=== PATIENT | male | born 1945 | race Caucasian/White ===

== ENCOUNTER 2017-11-17 07:10 | Inpatient (IN) | payer OTHER, MEDICAID ==
[~2017-11-17] VITALS: Ht 175.3 cm; Wt 83.0 kg
[2017-11-17] VITALS (52 sets, daily range): BP systolic 68–146; BP diastolic 37–92
[~2017-11-17 07:10] MED LIST: ACET-2619 PO; AMLO5TAB PO; ATOR10TA PO; BISA-213 RC; CLIN300C2 PO; COU1 PO; DOCU-299 PO; FAMO20TA13 PO; GABA300C PO; HYDR100T79 PO; ISOS10TA9 PO; LACT10CA1 PO; LEVO750T2 PO; LISI-420 PO; MAGN400S60 PO; METH750T5 PO; METO50TE2 PO; MULT-1328 PO; NALO25TA PO; OXYC5TAB4 PO; SENN-73 PO; SERT50TA PO; ZOLP10TA1 PO
--- NOTE | 2017-11-17 07:11 | NUR ---
PT BIBA ALS TO BED 10
--- NOTE | 2017-11-17 07:15 | NUR ---
ELLY MEZAP AND ELLY LOPEZP ATTENDING TO ICU-10 FOR POSSIBLE INTUBATION
--- NOTE | 2017-11-17 07:17 | NUR ---
BS-140MG/DL
[2017-11-17] MEDS ORDERED: PIPERACILLIN/TAZOBACTAM 3.375 GM in DEXTROSE 5% 50 ML IV ONE ×2 (07:20→10:20)
[2017-11-17] MEDS ORDERED: NACL 0.9% 500 ML IV ONE ×2 (07:20)
--- NOTE | 2017-11-17 07:23 | NUR ---
DR. CATHI PAUL ATTENDING FOR INTUBATION PROCEDURE SUCCESSFUL CONFIRMATION BY ETCO2 DETECTOR WITH YELLOW WITH AUSCULTATION TO BILATERAL CHEST PLUS ABDOMINAL BY FOREMENTIONED
--- NOTE | 2017-11-17 07:24 | NUR ---
ENDOTRACHEAL SUCTION FOR COPIOUS THICK YELLOW SECRETIONS
[2017-11-17] MEDS ORDERED: PROPOFOL 1000 MG/100 ML PREMIX 100 ML IV ONE (07:25)
--- NOTE | 2017-11-17 07:25 | NUR ---
PATIENT PLACED ON A [employer] R860 VENTILATOR WITH RBVO SETTINGS FROM DR CATHI PAUL AC 12 VT 600 PEEP 5 FIO2 100% SPUTUM SAMPLE COLLECTED
[2017-11-17] MEDS ORDERED: PIPERACILLIN/TAZOBACTAM 3.375 GM VIAL IV ONE (07:27)
--- NOTE | 2017-11-17 07:35 | NUR ---
ENDORACHEAL PLACEMENT CONFIRMED VIA XRAY BY DR CATHI WING INSERT TUBE BY 1 CM 24 CM TO 25 CM ENDOTRACHEAL SUCTION FOR LARGE THICK YELLOW SECRETIONS Addendum: 11/17/17 at 0953 by MCACPA ENDOTRACHEAL TUBE INSERTED 1CM 25CM TO 26CM
[2017-11-17 07:41] LABS: HEMATOCRIT 40.1 % (36-52); HEMOGLOBIN 12.8 g/dL (12.0-18.0); MEAN CORPUSCULAR HEMOGLOBIN 28 pg (27-31); MEAN CORPUSCULAR HGB CONC 32 g/dL (33-37); PLATELET COUNT (AUTO) 432 K/uL (140-450); RED BLOOD CELL COUNT(AUTO) 4.51 MIL/uL (4.20-6.10); RED CELL DISTRIBUTION WIDTH 15.5 % (11.6-13.7); WHITE BLOOD COUNT (AUTO) 15.4 K/uL (4.8-10.8)
[2017-11-17 08:03] LABS: LYMPHOCYTES % (MANUAL) 5 % (20-46); MONOCYTES % (MANUAL) 3 % (5-12)
[2017-11-17 08:10] LABS: ALBUMIN 2.2 g/dL (3.4-5.0); ANION GAP 15.9 (8-16); ASPARTATE AMINOTRANSFERASE 20 U/L (15-37); CARBON DIOXIDE 23.6 mmol/L (21-32); CHLORIDE 105 mmol/L (98-107); CREATININE 2.3 mg/dL (0.7-1.3); GLUCOSE 145 mg/dL (74-106); POTASSIUM 4.5 mmol/L (3.5-5.1); SODIUM SERUM 140 mmol/L (136-145); TOTAL BILIRUBIN 0.6 mg/dL (0.0-1.0); UREA NITROGEN, BLOOD 27 mg/dL (7-18)
--- NOTE | 2017-11-17 08:13 | NUR ---
# 14 FR Urinary catheter inserted utilizing sterile technique. Immediate return of 30 ml CLOUDY BROOKE urine noted. Urine sample collected and sent to lab. Pt tolerated procedure WELL.
--- NOTE | 2017-11-17 08:20 | NUR ---
72 YO M BIBA FOR SOB, RESP DISTRESS, ON BMV @76%, DECREASED LS NITHIN GCS-4, PT TO BED TEN. PT INTUMATED ON ARRIVAL TO ER BY ER . PT FEBRIAL 100.6 TEMPORAL. VENT SETTING AT AC12, TV 600, PEEP 5, FIO2 100%, 26 AT THE TEETH. SPUTUM COLLECTED BY RT AND SENT TO LAB. LS CORSE AT BILAT UPPER LOBES WITH WHEEZING IN INSPIRATION. SHALLOW EVEN BREATHS, BS ACTIVE X4. WILL CONTINUE TO MONITOR. ER MADE AWARE. HOB UP.
[2017-11-17 08:24] LABS: APPEARANCE,URINE TURBID (CLEAR); BILIRUBIN,URINE 1+ (NEGATIVE); BLOOD, URINE 3+ (NEGATIVE); LEUKOCYTE ESTERASE ,URINE 3+ (NEGATIVE); NITRITE, URINE POSITIVE (NEGATIVE); PH,URINE 5.5 (5.0-9.0); UGLUCOSE NEGATIVE (NEGATIVE)
--- NOTE | 2017-11-17 08:24 | NUR ---
HYPOTENSIVE, INFORMED DR PAUL. AWATING ORDERS.
[2017-11-17] MEDS ORDERED: ASPIRIN 81 MG TAB.CHEW PO ONE (08:25)
[2017-11-17] MEDS ORDERED: NACL 0.9% 2,500 ML IV ONE (08:25)
[2017-11-17] MEDS ORDERED: ACETAMINOPHEN 650 MG SUPP RC ONE ×2 (08:30→08:36)
[2017-11-17 08:32] LABS: COLOR,URINE BROWN (YELLOW)
--- NOTE | 2017-11-17 08:49 | NUR ---
XRAY AT BEDSIDE
[2017-11-17 08:53] LABS: RBC,URINE 3-10 (FEW) /HPF (0-5); WBC,URINE 16-25 (MOD) /HPF (0-5)
[2017-11-17] MEDS ORDERED: INTUBATION KIT MC ONE (09:00)
[2017-11-17 09:17] LABS: PROTHROMBIN TIME 149.7 secs (10.8-13.4)
[2017-11-17] MEDS ORDERED: PHYTONADIONE 10 MG in NACL 0.9% 50 ML IV ONE (09:35)
[2017-11-17] MEDS ORDERED: NACL 0.9% 1,000 ML IV SCH (09:56)
[2017-11-17] MEDS ORDERED: ONDANSETRON 4 MG/2 ML VIAL IVP PRN (10:00)
[2017-11-17] MEDS ORDERED: ALBUTEROL SULFATE/IPRATROPIU 3 ML SOL IH PRN (10:05)
[2017-11-17] MEDS ORDERED: LEVOFLOXACIN 750 MG/D5W PREMIX 150 ML IV ONE (10:20)
[2017-11-17] MEDS ORDERED: PHYTONADIONE 10 MG/ML AMP ONE (10:23)
[2017-11-17 10:40] LABS: BARBITURATE, URINE NEG. ng/ml (NEG <=200); BENZODIAZEPINE, URINE NEG. ng/mL (NEG <=200); CANNABINOID, URINE NEG. ng/mL (NEG <=50); COCAINE, URINE NEG. ng/mL (NEG <=300); OPIATE, URINE NEG. ng/mL (NEG <=2000); PHENCYCLIDINE SCREEN,URINE NEG. ng/mL (NEG <=25)
[2017-11-17] MEDS ORDERED: MAGNESIUM HYDROXIDE 2400 MG/30 ML UDC GT PRN (10:45)
[2017-11-17] MEDS ORDERED: BISACODYL 10 MG SUPP RC PRN (10:45)
[2017-11-17 10:48] LABS: CHOL/HDL RATIO 2.5 (1-4.5); FREE T4 (FREE THYROXINE) 1.07 ng/dL (0.76-1.46); MAGNESIUM 1.3 mg/dL (1.8-2.4); PHOSPHORUS 4.3 mg/dL (2.5-4.9); THYROID STIMULATING HORMONE 0.36 uIU/mL (0.34-3.74)
--- NOTE | 2017-11-17 11:03 | NUR ---
Patient will be admitted to care of DR GOLDBERG. Admited to ICU . Will go to room 5. Belongings list completed. Report to AUSTEN DEL CID .
--- NOTE | 2017-11-17 11:10 | NUR ---
RECEIVED PATIENT FROM ER. PATIENT IS AAOX1, UNABLE TO FOLLOW SIMPLE COMMANDS, OPENS EYES SPONTANEOUSLY, NO TRACKING. PATIENT SKIN IS COOL AND CLAMMY AND INTACT WITH REDNESS TO THE BUTTOCKS. HAS PERIPHERAL IV SITE TO RIGHT FA, 18 GAUGE, ASYMPTOMATIC, INTACT. WITH NS BOLUS IN PLACE. ETT TO VENT, SETTING ARE AC 14, FIO2 80, TV 600, PEEP 5. SR ON MONITOR, PATIENT IS HYPOTENSIVE, DR. SOLIZ AWARE. HOB IS 30 DEGREES IN A LOW POSITION. CALL LIGHT WITHIN REACH, WILL CONTINUE TO MONITOR.
--- NOTE | 2017-11-17 11:11 | NUR ---
PT MANUALLY VENTILATED FROM ER TO ICU WITHOUT INCIDENT. PT IS INTUBATED 7.5 @26 TEETH/GUMS. VENT SETTINGS AC 14, VT 600, PEEP 5 AND FIO2 80%. VENT IS PLUGGED INTO A RED OUTLET WITH ALARMS ON AND FUNCTIONING.
[2017-11-17] MEDS: NOREPINEPHRINE 4 MG in DEXTROSE 5% 250 ML IV PRN (12:26)
--- NOTE | 2017-11-17 12:54 | NUR ---
DR. STORY IN TO SEE AND EXAMINE PATIENT, UPDATED ON PATIENT'S CONDITION. WILL FOLLOW UP WITH ANY ORDERS.
[2017-11-17] MEDS: hydrALAZINE 25 MG TAB NG SCH ×2 (13:00→21:00)
[2017-11-17] MEDS: PIPER/TAZO 3.375GM/D5W PREMIX 50 ML IV SCH ×2 (13:47→22:49)
[2017-11-17] MEDS: ISOSORBIDE DINITRATE 10 MG TAB PO SCH ×2 (13:56→17:26)
[2017-11-17] MEDS: HYDROCORTISONE NA SUCC 100 MG/2 ML VIAL IV SCH ×2 (13:57→20:53)
[2017-11-17] MEDS: ALBUTEROL SULFATE/IPRATROPIU 3 ML SOL IH SCH ×2 (14:14→19:10)
--- NOTE | 2017-11-17 14:56 | NUR ---
INSERTED ESPOSITO CATHETER, NO SIGNS OF DISTRESS NOTED. PATIENT TOLERATED PROCEDURE WELL. WILL CONTINUE TO MONITOR
[2017-11-17] MEDS ORDERED: LEVOFLOXACIN 750 MG/D5W PREMIX 150 ML IV SCH (15:00)
[2017-11-17] MEDS: MIDAZOLAM MDV 50 MG in NACL 0.9% 40 ML IV PRN (16:20)
--- NOTE | 2017-11-17 16:50 | NUR ---
STARTED PATIENT ON FRESH FROZEN PLASMA, NO SIGNS OF DISTRESS NOTED, WILL CONTINUE TO MONITOR
[2017-11-17] MEDS: LORazepam 2 MG/ML VIAL IM/IVP PRN (17:09)
--- NOTE | 2017-11-17 17:53 | NUR ---
PT ON VENT WITH SETTINGS AC 14, VT 600, PEEP 5 AND FIO2 60%. PT IS NOT SOB AND NOT IN ANY DISTRESS AT THIS TIME. SPO2 REMAINS AT 97%. PT SUCTIONED OBTAINED MODERATE AMOUNT OF THICK YELLOW SECRETIONS. AIRWAY REMAINS SECURE WITH A PATENT AIRWAY. THERE IS NO BITING OR KINKING OF ETT. VENT ALARMS REMAIN ON AND FUNCTIONING.
--- NOTE | 2017-11-17 18:22 | NUR ---
SPOKE WITH LANE REGARDING PATIENTS DISCHARGE TOMORROW TO A CAR FACILITY. HE STATED UNDERSTANDING AND EXPLAINED THAT HIM AND HIS SISTER WOULD LOOK INTO [employer]. EXPLAINED HIS MOTHERS CONDITION POST G TUBE PLACEMENT. Addendum: 11/17/17 at 1834 by Karon Ryan RN WRONG PATIENT
--- NOTE | 2017-11-17 18:39 | NUR ---
RESIDENT PHYSICIAN, DR. TROTTER AT BEDSIDE, UPDATED ON PATIENT'S CONDITION. WILL FOLLOW UP ON ANY ORDERS.
--- NOTE | 2017-11-17 19:15 | NUR ---
RECEIVED REPORT FROM MORNING SHIFT RN FOR CONTINUITY OF CARE. PT IS AFEBRILE, ABLE TO RESPOND TO COMMANDS, LAYING RELAXED IN BED. ETT TO VENT ETT SIZE 7.5, AC=14 AK=381 FIO2=60%. LUNG SOUND CLEAR UPPER BILATERAL LOBES, DIMINISHED IN LOWER BILATERAL LOBES. SR ON CYBER INCIDENT ANALYST. PT IS ON LEVOPHED DRIP, 18 GAUGE ON RIGHT FOREARM. NGT ON LEFT NARES, NPO EXCEPT MEDS. BOWEL SOUNDS HYPOACTIVE. ESPOSITO CATHETER IN PLACE, URINE IS DARK BROOKE IN COLOR. SKIN IS INTACT AND NORMAL IN COLOR, WARM AND DRY TO TOUCH. HOB ELEVATED ABOVE 30 DEG, PILLOW SUPPORT PROVIDED.
[2017-11-17] MEDS ORDERED: MORPHINE SULFATE 2 MG/ML SYR IVP PRN ×2 (20:30→22:40)
[2017-11-17] MEDS: DOCUSATE 100 MG/10 ML UDC PO SCH (20:49)
[2017-11-17] MEDS: ATORVASTATIN 20 MG TAB PO SCH (20:49)
[2017-11-17] MEDS: amLODIPine 5 MG TAB GT SCH (21:00)
[2017-11-17] MEDS: METOPROLOL 50 MG TAB GT SCH (21:00)
[2017-11-17] MEDS: LISINOPRIL 20 MG TAB PO SCH (21:00)
[2017-11-17] MEDS ORDERED: WARFARIN 1 MG TAB PO SCH (21:00)
--- NOTE | 2017-11-17 21:45 | NUR ---
SUCTIONING PROVIDED AT BEDSIDE, PT REPOSITIONED AND PILLOW SUPPORT PROVIDED.
--- NOTE | 2017-11-17 22:45 | NUR ---
CALLED AFTER HOURS PHARMACY REGARDING ADMINISTRATION OF ZOSYN, WAS INFORMED TO TEMPORARILY STOP VERSED INFUSION IN ORDER TO ADMINISTER ZOSYN.
[2017-11-17] MEDS: DEXT 5% /NACL 0.9% 1,000 ML IV SCH (22:49)
[2017-11-18] VITALS (102 sets, daily range): BP systolic 82–135; BP diastolic 51–117
--- NOTE | 2017-11-18 00:15 | NUR ---
VAP ORAL CARE AND SUCTION PROVIDED AT BEDSIDE.
[2017-11-18 00:39] LABS: PROTHROMBIN TIME 16.3 secs (10.8-13.4)
[2017-11-18] MEDS: NOREPINEPHRINE 4 MG in DEXTROSE 5% 250 ML IV PRN (01:21)
--- NOTE | 2017-11-18 01:27 | NUR ---
LOWERED FIO2 TO 30%. SATS 96%. NO SOB NOTED
[2017-11-18] MEDS ORDERED: MAGNESIUM OXIDE 400 MG TAB NG SCH (03:00)
[2017-11-18] MEDS: hydrALAZINE 25 MG TAB NG SCH ×3 (05:00→20:50)
[2017-11-18] MEDS: HYDROCORTISONE NA SUCC 100 MG/2 ML VIAL IV SCH ×3 (05:00→20:48)
[2017-11-18] MEDS: PIPER/TAZO 3.375GM/D5W PREMIX 50 ML IV SCH ×3 (05:00→20:48)
[2017-11-18] MEDS: MIDAZOLAM MDV 50 MG in NACL 0.9% 40 ML IV PRN (06:03)
--- NOTE | 2017-11-18 06:37 | NUR ---
PATIENT HAS BEEN SCREENED AND CATEGORIZED HIGH NUTRITION RISK. PATIENT WILL BE SEEN WITHIN 1-2 DAYS OF ADMISSION. 11/18/17-11/19/17 ERWIN MOHR MS, RDN
[2017-11-18] MEDS: ALBUTEROL SULFATE/IPRATROPIU 3 ML SOL IH SCH ×3 (06:49→19:07)
--- NOTE | 2017-11-18 06:54 | NUR ---
RECEIVED INTUBATED PT WITH 7.5 ETT SECURED @26 TEETH/GUMS ON VENT. SETTINGS AC 14, VT 600, PEEP 5 AND FIO2 30%. PT SUCTIONED OBTAINED SMALL AMOUNT OF THICK YELLOW SECRETIONS, AIRWAY IS PATENT AND ETT IS SECURE. THERE IS NO BITING OR KINKING OF ETT. VENT IS PLUGGED INTO A RED OUTLET WITH ALARMS ON AND FUNCTIONING. PT IS NOT IN ANY DISTRESS AT THIS TIME. WILL CONTINUE TO MONITOR.
[2017-11-18] MEDS ORDERED: FUROSEMIDE 40 MG/4 ML VIAL IVP SCH (07:00)
--- NOTE | 2017-11-18 07:30 | NUR ---
RECEIVED PATIENT IN BED.ETT SIZE 7.5 AT 26 CM LEVEL AT GUM LINE.ETT TO VENT WITH 30 PERCENT FIO2,RIGHT FOREARM 18 GAUGE WITH LEVOPHED DRIP AT 2 MCG/MIN,VERSED DRIP AT 4 MG/H,D5.9 AT 50 ML/H.NO SIGNS OF DISCOMFORT.ESPOSITO TO GRAVITY WITH GOOD URINE OUTPUT.NGT TO LEFT NARES.POSITIVE FOR PLACEMENT.NSR ON THE MONITOR.PT IS NOT IN ANY CARDIORESPIRATORY DISTRESS.
[2017-11-18 08:03] LABS: BASOPHILS % (AUTO) 0.1 % (0.0-2.0); HEMATOCRIT 36.7 % (36-52); HEMOGLOBIN 11.8 g/dL (12.0-18.0); LYMPHOCYTES # (AUTO) 0.6 K/uL (2.0-11.5); LYMPHOCYTES % (AUTO) 5.2 % (20.5-51.1); MEAN CORPUSCULAR HEMOGLOBIN 28 pg (27-31); MEAN CORPUSCULAR HGB CONC 32 g/dL (33-37); MEAN CORPUSCULAR VOLUME 87.8 fL (80-94); MONOCYTES # (AUTO) 0.5 K/uL (0.8-1.0); MONOCYTES % (AUTO) 4.5 % (1.7-9.3); NEUTROPHILS # (AUTO) 10.1 K/uL (1.8-7.7); NEUTROPHILS % (AUTO) 90.2 % (42.2-75.2); PLATELET COUNT (AUTO) 303 K/uL (140-450); RED BLOOD CELL COUNT(AUTO) 4.19 MIL/uL (4.20-6.10); RED CELL DISTRIBUTION WIDTH 15.3 % (11.6-13.7); WHITE BLOOD COUNT (AUTO) 11.2 K/uL (4.8-10.8)
--- NOTE | 2017-11-18 08:10 | NUR ---
DR GIBBS MADE ROUNDS AND PER MD HOLD VERSED AND RESTART IF BECOME RESTLESS AT 1MG/H.
[2017-11-18 08:16] LABS: ANION GAP 14.6 (8-16); CARBON DIOXIDE 24.8 mmol/L (21-32); CHLORIDE 108 mmol/L (98-107); CREATININE 1.6 mg/dL (0.7-1.3); GLUCOSE 182 mg/dL (74-106); POTASSIUM 3.4 mmol/L (3.5-5.1); PROTHROMBIN TIME 14.8 secs (10.8-13.4); SODIUM SERUM 144 mmol/L (136-145); UREA NITROGEN, BLOOD 30 mg/dL (7-18)
[2017-11-18 08:18] LABS: MAGNESIUM 1.8 mg/dL (1.8-2.4); PHOSPHORUS 2.2 mg/dL (2.5-4.9)
[2017-11-18] MEDS: PANTOPRAZOLE 40 MG INJ VIAL IVP SCH (08:26)
[2017-11-18] MEDS: FAMOTIDINE 20 MG TAB NG SCH (08:26)
[2017-11-18] MEDS: SERTRALINE 50 MG TAB GT SCH (08:26)
[2017-11-18] MEDS: GABAPENTIN 300 MG CAP GT SCH ×2 (08:26→20:48)
[2017-11-18] MEDS: SENNA 8.6 MG TAB PO SCH (08:26)
[2017-11-18] MEDS: DOCUSATE 100 MG/10 ML UDC PO SCH ×2 (08:27→20:48)
[2017-11-18] MEDS: LACTOBACILLUS RHAMNOSUS GG 1 EACH CAP NG SCH (08:27)
[2017-11-18] MEDS: amLODIPine 5 MG TAB GT SCH ×2 (08:27→20:50)
[2017-11-18] MEDS: LISINOPRIL 20 MG TAB PO SCH ×2 (08:28→20:50)
[2017-11-18] MEDS: METOPROLOL 50 MG TAB GT SCH ×3 (08:28→21:00)
[2017-11-18] MEDS ORDERED: HYDRAGUARD CREAM TP SCH (09:00)
--- NOTE | 2017-11-18 10:39 | NUR ---
LY NOTIFIED PT DOESNT HAVE AN OPEN WOUND AT SACRAL AREA SO UNABLE TO COLLECT CULTURE PER MD ITS OK.,ONLY REDNESS ,NONBLANCHABLE,WTH RIGHT BUTTOCKS PURPLISH DISCOLORATION.
[2017-11-18] MEDS: HYDRAGUARD CREAM TP SCH (10:43)
--- NOTE | 2017-11-18 11:14 | NUR ---
PATIENT CAME BACK FROM CT SCAN OF THE HEAD ,HEART RATE 140-150S ATRIAL FIB RVR.PT ASYMPTOMATIC RN ASKED ARE YOU OK PATIENT SAID YES.
[2017-11-18] MEDS: LORazepam 2 MG/ML VIAL IM/IVP PRN (11:25)
--- NOTE | 2017-11-18 11:30 | NUR ---
INCREASE VERSED DRIP TO 4MG/H .DR BLANCO AWARE.
--- NOTE | 2017-11-18 11:39 | NUR ---
PT SUCTIONED OBTAINED LARGE AMOUNT OF THICK YELLOW SECRETIONS, AIRWAY IS PATENT AND ETT IS SECURE.
--- NOTE | 2017-11-18 12:10 | NUR ---
DR BLANCO AWARE HEART RATE IS STILL 140-150S .PT ASYMPTOMATIC.
--- NOTE | 2017-11-18 12:27 | NUR ---
DECREASED VERSED DRIP TO 1 MG/H PATIENT IS CALM NOW.
[2017-11-18] MEDS ORDERED: DILTIAZEM 25 MG/5 ML VIAL IVP ONE (12:35)
[2017-11-18] MEDS ORDERED: DILTIAZEM 25 MG/5 ML VIAL IVP SCH ×2 (12:45→12:47)
--- NOTE | 2017-11-18 13:30 | NUR ---
DIETARY CALLED FOR FEEDING.
--- NOTE | 2017-11-18 13:42 | NUR ---
HHN STOPPED DUE TO INCREASE IN HR.
--- NOTE | 2017-11-18 14:30 | NUR ---
DAUGHTER UPDATED BY DR BLANCO ABOUT PATIENTS CONDITION.
--- NOTE | 2017-11-18 14:30 | NUR ---
INCREASED VERSED DRIP TO 2MG/H PATIENT IS BITING ETT AND VENT IS ALARMING.
--- NOTE | 2017-11-18 14:30 | NUR ---
NGT FEEDING 2 JAVIER HN WAS STARTED AT 40 ML/H WITH WATER FLUSH 100 ML/H.
--- NOTE | 2017-11-18 15:03 | NUR ---
PT IS CALM BUT AROUSABLE WITH VERSED AT 2MG/H
[2017-11-18] MEDS: LEVOFLOXACIN 750 MG/D5W PREMIX 150 ML IV SCH (15:05)
[2017-11-18] MEDS: DEXT 5% /NACL 0.9% 1,000 ML IV SCH (16:07)
[2017-11-18] MEDS ORDERED: WARFARIN 1 MG TAB PO SCH (17:00)
[2017-11-18] MEDS ORDERED: WARFARIN 2.5 MG TAB PO SCH (17:00)
--- NOTE | 2017-11-18 17:01 | NUR ---
ESPOSITO CATHETER CARE DONE
--- NOTE | 2017-11-18 17:06 | NUR ---
PT ON AC 14, VT 600, PEEP 5 AND FIO2 30%. PT SUCTIONED OBTAINED MODERATE AMOUNT OF THICK YELLOW SECRETIONS, AIRWAY IS PATENT AND ETT IS SECURE. THERE IS NO BITING OR KINKING OF ETT. VENT ALARMS REMAIN ON AND FUNCTIONING.
--- NOTE | 2017-11-18 17:20 | NUR ---
DR BLANCO UPDATED ABOUT PATIENT CONDITION ESPECIALLY HEART RATE 120.
--- NOTE | 2017-11-18 19:00 | NUR ---
20 GAUGE IV INSERTED AT LEFT FOREARM WITH GOOD BLOOD RETURN.PT TOLERATED WELL.
--- NOTE | 2017-11-18 19:14 | NUR ---
REPORT GIVEN TO BRICE
--- NOTE | 2017-11-18 19:20 | NUR ---
RECEIVED REPORT FROM MORNING SHIFT RN FOR CONTINUITY OF CARE. PT IS AFEBRILE, AWAKE AND RESTING WITHOUT AGITATION, ABLE TO RESPOND TO COMMANDS. ETT SET TO VENT A/C, FIO2 30%, JK=911, RR=14, FLOW 50ML/HR, PEEP 5. RHONCHI HEARD ON UPPER AND LOWER BILATERAL LOBES UPON AUSCULTATION. NGT IN LEFT NARES INTACT, SET TO FEEDING AT 40ML/HR, AUSCULTATED FOR PROPER PLACEMENT. BOWEL SOUND ACTIVE. ESPOSITO CATHETER IN PLACE, URINE IS BROOKE IN COLOR. TACHYCARDIC ON HEART MONITOR. 18 GAUGE PERIPHERAL IV ON RIGHT FOREARM INFUSING, AND PERIPHERAL IV ON LEFT FOREARM, INTACT AND ASYMPTOMATIC. HOB ELEVATED ABOVE 30 DEG WITH SCDS ON BOTH LEGS, BED IN LOWEST POSITION. Addendum: 11/19/17 at 0249 by Deloris Bee RN RECEIVED PT ON LEVOPHED AT 2MCG/MIN AND VERSED AT 2MG/HR.
--- NOTE | 2017-11-18 20:05 | NUR ---
VAP ORAL CARE AND SUCTIONING PROVIDED AT BEDSIDE.
[2017-11-18] MEDS: ATORVASTATIN 20 MG TAB PO SCH (20:49)
[2017-11-18] MEDS ORDERED: SODIUM PHOS / POTASSIUM PHOS 1 PKT PDR ONE (21:59)
[2017-11-18] MEDS: SODIUM PHOS / POTASSIUM PHOS 1 PKT PDR PO SCH (23:35)
[2017-11-19] VITALS (90 sets, daily range): BP systolic 104–165; BP diastolic 58–106
--- NOTE | 2017-11-19 00:05 | NUR ---
VAP ORAL CARE AND SUCTIONING PROVIDED AT BEDSIDE. THICK, CLEAR/WHITE SECRETIONS NOTED ON SUCTIONING. PT REPOSITONED IN BED AND PILLOW SUPPORT PROVIDED. HOB ELEVATED ABOVE 30 DEG. PT ON VERSED SEDATION, WITHOUT AGITATION AND OPENS EYES SPONTANEOUSLY.
[2017-11-19] MEDS: NOREPINEPHRINE 4 MG in DEXTROSE 5% 250 ML IV PRN (00:45)
[2017-11-19] MEDS: MIDAZOLAM MDV 50 MG in NACL 0.9% 40 ML IV PRN ×2 (00:45→19:06)
--- NOTE | 2017-11-19 03:45 | NUR ---
MORNING CARES AND VAP ORAL CARE PROVIDED TO PT AT BEDSIDE. LARGE AMOUNT OF LOOSE, DARK YELLOW- BROWN STOOL. PT REMAINS ON 2MCG/MIN LEVOPHED AND 2MG/HR OF VERSED SEDATION. HOB ELEVATE ABOVE 30 DEG AND PT REPOSITIONED AT THIS TIME.
--- NOTE | 2017-11-19 04:55 | NUR ---
RT AT BESIDE TO COLLECT ABG LAB VALUE. PT REMAINS ON VERSED SEDATION 2MG/HR WITH MILD AGITATION. MITT ON RIGHT HAND. HOB ELEVATED ABOVE 30 DEG.
[2017-11-19] MEDS: hydrALAZINE 25 MG TAB NG SCH ×4 (05:00→23:51)
--- NOTE | 2017-11-19 05:15 | NUR ---
ABG DONE, NO CHANGES IN VENT SETTINGS, LARGE SECRETION SUCTION, NO DISTRESS NOTED
[2017-11-19] MEDS: PIPER/TAZO 3.375GM/D5W PREMIX 50 ML IV SCH ×3 (05:18→20:25)
[2017-11-19] MEDS: HYDROCORTISONE NA SUCC 100 MG/2 ML VIAL IV SCH ×3 (05:19→20:25)
--- NOTE | 2017-11-19 05:42 | NUR ---
XRAY AT PT BEDSIDE.
[2017-11-19] MEDS ORDERED: SODIUM PHOS / POTASSIUM PHOS 1 PKT PDR ONE (05:46)
[2017-11-19] MEDS: SODIUM PHOS / POTASSIUM PHOS 1 PKT PDR PO SCH ×6 (06:06→23:50)
[2017-11-19 06:20] LABS: HEMOGLOBIN 11.4 g/dL (12.0-18.0); MEAN CORPUSCULAR HEMOGLOBIN 29 pg (27-31); MEAN CORPUSCULAR HGB CONC 33 g/dL (33-37); MEAN CORPUSCULAR VOLUME 87.4 fL (80-94); PLATELET COUNT (AUTO) 346 K/uL (140-450); RED CELL DISTRIBUTION WIDTH 15.4 % (11.6-13.7); WHITE BLOOD COUNT (AUTO) 17.9 K/uL (4.8-10.8)
[2017-11-19 06:49] LABS: ANION GAP 16.2 (8-16); CARBON DIOXIDE 22.1 mmol/L (21-32); CHLORIDE 109 mmol/L (98-107); CREATININE 1.3 mg/dL (0.7-1.3); GLUCOSE 222 mg/dL (74-106); POTASSIUM 3.3 mmol/L (3.5-5.1); PROTHROMBIN TIME 13.3 secs (10.8-13.4); SODIUM SERUM 144 mmol/L (136-145); UREA NITROGEN, BLOOD 34 mg/dL (7-18)
[2017-11-19] MEDS: ALBUTEROL SULFATE/IPRATROPIU 3 ML SOL IH SCH ×3 (06:52→19:28)
--- NOTE | 2017-11-19 07:25 | NUR ---
REPORT GIVEN TO MORNING RN FOR CONTINUITY OF CARE. PT IN STABLE CONDITION AT THIS TIME.
--- NOTE | 2017-11-19 07:45 | NUR ---
Report received from night nurseDeloris. Levophed stopped at 0705. pt awake trying to communicate and able to follow commands. ETT tube in place 27 at teeth. vent running AC 14, FiO2 30%, VT 600. Coarse Crackles heard bilaterally in lungs. Productive cough present, pt suctioned. s1s2 heard normal sinus rhythm on monitor. feeding tubes running through NG tube, placement verified. bowel sounds present X4 quadrants. Garcia cath in place. skin warm dry intact, unbalanceable redness noted on sacral area. VAP oral care preformed. pt resting without complaints of pain. Will check back frequently.
[2017-11-19 07:47] LABS: LYMPHOCYTES % (MANUAL) 10 % (20-46); MONOCYTES % (MANUAL) 5 % (5-12)
--- NOTE | 2017-11-19 08:05 | NUR ---
SEEN BY DR. BLANCO AND GROUP. MADE AWARE ABOUT POTASSIUM 3.3 AND INR RESULT.
--- NOTE | 2017-11-19 08:30 | NUR ---
ABG RESULTS DISCUSSED WITH . PHYSICIAN REQUESTS NEW VENT SETTINGS AC 12, VT500, PEEP 5 AND FIO2 30%. WILL CONTINUE TO MONITOR.
[2017-11-19] MEDS: FAMOTIDINE 20 MG TAB NG SCH (08:50)
[2017-11-19] MEDS: METOPROLOL 50 MG TAB GT SCH ×2 (08:50→20:25)
[2017-11-19] MEDS: GABAPENTIN 300 MG CAP GT SCH ×2 (08:50→20:25)
[2017-11-19] MEDS: amLODIPine 5 MG TAB GT SCH ×2 (08:51→21:23)
[2017-11-19] MEDS: SERTRALINE 50 MG TAB GT SCH (08:51)
[2017-11-19] MEDS: LACTOBACILLUS RHAMNOSUS GG 1 EACH CAP NG SCH (08:52)
[2017-11-19] MEDS: DOCUSATE 100 MG/10 ML UDC PO SCH ×2 (08:52→20:26)
[2017-11-19] MEDS: PANTOPRAZOLE 40 MG INJ VIAL IVP SCH (08:52)
[2017-11-19] MEDS: LISINOPRIL 20 MG TAB PO SCH ×2 (08:53→21:00)
[2017-11-19] MEDS: SENNA 8.6 MG TAB PO SCH (08:53)
[2017-11-19] MEDS: HYDRAGUARD CREAM TP SCH (09:00)
[2017-11-19] MEDS ORDERED: POTASSIUM CHLORIDE 20% 40 MEQ/15 ML UDC GT SCH (09:43)
[2017-11-19] MEDS: LORazepam 2 MG/ML VIAL IM/IVP PRN (10:41)
--- NOTE | 2017-11-19 10:45 | NUR ---
PT RESTLESS AND AGITATED GIVEN PRN ATIVAN 0.5 MG PER ORDER. WILL REASSESS PT IN 30 MINUTES.
[2017-11-19] MEDS ORDERED: PROBIOTIC SCREEN 1 EA MISC MC PRN (11:05)
--- NOTE | 2017-11-19 11:13 | NUR ---
PT RESTING COMFORTABLY. SLEEPING. WILL CONTINUE TO MONITOR
[2017-11-19] MEDS: DEXT 5% /NACL 0.9% 1,000 ML IV SCH (12:51)
[2017-11-19] MEDS: LEVOFLOXACIN 750 MG/D5W PREMIX 150 ML IV SCH (15:28)
--- NOTE | 2017-11-19 15:49 | NUR ---
PT RESTING IN BED COMFORTABLY. NO ACUTE RESPIRATORY DISTRESS NOTED. NO CHANGE IN LOC. VS WNL. ON CONTINUOUS BEDSIDE MONITORING.
--- NOTE | 2017-11-19 16:58 | NUR ---
KEPT PT CLEAN AND DRY. PT RESTING IN BED COMFORTABLY.
[2017-11-19] MEDS ORDERED: WARFARIN PO SCH ×2 (17:00)
--- NOTE | 2017-11-19 17:37 | NUR ---
PT REMAINS ON AC 14, VT 500, PEEP 5 AND FIO2 30%. ETT REMAINS SECURE WITH A PATENT AIRWAY. PT IS AWAKE IN BED AND NOT SOB/NOT IN RESPIRATORY DISTRESS. VENT ALARMS REMAIN ON AND FUNCTIONING.
--- NOTE | 2017-11-19 17:46 | NUR ---
100MG HYDRALAZINE GIVEN AT 1740 FOR HIGH BP 163/98. DR BLANCO GAVE VERBAL ORDERS.
--- NOTE | 2017-11-19 18:01 | NUR ---
PT ETT NOTED 27 AT TEETH THIS MORNING NOW AT 23. RT CALLED WILL COME TO ASSESS.
--- NOTE | 2017-11-19 18:05 | NUR ---
RT AT BEDSIDE TO ASSES ETT PLACEMENT Addendum: 11/19/17 at 1813 by Karon Ryan RN ETT PUT BACK AT 26 AT TEETH. STAT CHEST X-RAY ADVISED BY RT. WILL CALL DR. BLANCO TO ORDER.
--- NOTE | 2017-11-19 18:15 | NUR ---
BP RECHECKED AFTER HYDRALAZINE CAME DOWN TO 149/58 WILL CONTINUE TO MONITOR
--- NOTE | 2017-11-19 18:18 | NUR ---
ETT ADVANCED TO ORIGINAL 26 @TEETH/GUMS. STAT CXR REQUESTED. NURSE WILL PLACE ORDER.
[2017-11-19] MEDS: MORPHINE SULFATE 2 MG/ML SYR IVP PRN (18:32)
[2017-11-19] MEDS ORDERED: POTASSIUM CHLORIDE 10 MEQ TABER PO ONE (18:55)
--- NOTE | 2017-11-19 19:15 | NUR ---
ENDORSED TO ULTRA SOUND TECHNICIAN RN FOR CONTINUITY OF CARE. PT ON STABLE CONDITION.
--- NOTE | 2017-11-19 19:20 | NUR ---
RECEIVED REPORT FROM MORNING RN FOR CONTINUITY OF CARE. BP ELEVATED AT THIS TIME AND PER REPORT HAS BEEN RUNNING HIGH. AWARE. FLACC 0. PT OPENS EYES AND ABLE TO FOLLOW COMMAND. AFEBRILE. COOPERATIVE TOWARDS STAFF. LUNG SOUNDS CLEAR. ETT TO VENT WITH SETTINGS AC12, FIO2 30%, TV 500, AND PEEP 5. S1+S2 HEARD. SR ON MONITOR. PULSES PALPABLE IN EXTREMITIES. NGT TO LEFT NARES. FEEDING TWO JAVIER RUNNING AT 40ML/HR. RESIDUAL 380ML AT THIS TIME. FEEDING HELD PER PARAMETER. NGT PLACEMENT CHECKED. NO BM NOTED AT THIS TIME. ESPOSITO CATHETER IN PLACE DRAINING CLEAR, YELLOW URINE. SCDS IN PLACE. PT HAS RIGHT FOREARM 18G AND LEFT HAND 20G PERIPHERAL IV ACCESS THAT ARE PATENT, INTACT AND ASYMPTOMATIC. PT ON VERSED AT 2MG AND D5 NS AT 50ML/HR. HOB AT 30 DEGREES. ALL SAFETY PRECAUTIONS ARE IN PLACE. BED AT LOW POSSIBLE POSITION. CALL LIGHT WITHIN REACH. WILL CONTINUE TO MONITOR PT.
--- NOTE | 2017-11-19 19:38 | NUR ---
RCV'D PT ON MECHANICAL VENTILATION WITH CHARTED SETTINGS. VENT IS CONNECTED TO RED OUTLET.ALARMS AUDIBLE. NO SOB OR DISTRESS NOTED. HHN TX GIVEN WITH NO ADVERSE REACTION. PT IS AWAKE. WILL CONTINUE TO MONITOR.
--- NOTE | 2017-11-19 20:22 | NUR ---
PULLED OUT 3 CM OF ETT PER MARIA EUGENIA YEE AND ORDER.TUBE NOW AT 23 CM AT GUM. CUFF PRESSURE 22 CMH2O. MARIA EUGENIA YEE AWARE. CXR ORDERED. WILL FOLLOW.
[2017-11-19] MEDS: ATORVASTATIN 20 MG TAB PO SCH (20:25)
--- NOTE | 2017-11-19 22:14 | NUR ---
VS STABLE AT THIS TIME. SR ON MONITOR AT THIS TIME. PT TURNED AND REPOSITIONED. OPES EYES AND COUGHS. NO SECRETIONS SUCTIONED AT THIS TIME. RESIDUAL IS CURRENTLY 300 AT THIS TIME. WILL RECHECK AGAIN. WILL CONTINUE TO MONITOR PT.
[2017-11-20] VITALS (50 sets, daily range): BP systolic 93–161; BP diastolic 54–96
--- NOTE | 2017-11-20 00:01 | NUR ---
ORAL CARE PROVIDED. PT AWAKE AT THIS TIME. ABLE TO FOLLOW COMMAND. ESPOSITO CATHETER STILL DRAINING. CHECKED NGT AND NO RESIDUAL NOTED. WILL RESUME TUBE FEEDING. WILL CONTINUE TO MONITOR PT.
[2017-11-20] MEDS: MORPHINE SULFATE 2 MG/ML SYR IVP PRN ×3 (02:56→18:24)
--- NOTE | 2017-11-20 03:17 | NUR ---
PT ASLEEP AT THIS TIME. PAIN MEDICATION ADMINISTERED EARLIER. NO SIGNS OF DISTRESS NOTED AT THIS TIME. ALL IV LINES ARE PATENT AND INTACT. ALL SAFETY PRECAUTIONS ARE IN PLACE. HOB KEPT AT 30 DEGREES. FEEDING RUNNING CONTINUOUSLY. WILL RECHECK AT ABOUT 0400 THE RESIDUAL.
--- NOTE | 2017-11-20 03:50 | NUR ---
MORNING CARE AND ESPOSITO CATHETER CARE PROVIDED. ORAL CARE DONE. LINENS AND GOWN CHANGED. TOLERATING TUBE FEEDING WELL. HOB KEPT AT 30 DEGREES. ALL SAFETY PRECAUTIONS IN PLACE. WILL CONTINUE TO MONITOR PT.
[2017-11-20] MEDS: HYDROCORTISONE NA SUCC 100 MG/2 ML VIAL IV SCH (05:21)
[2017-11-20] MEDS: PIPER/TAZO 3.375GM/D5W PREMIX 50 ML IV SCH ×3 (05:21→20:32)
[2017-11-20] MEDS: SODIUM PHOS / POTASSIUM PHOS 1 PKT PDR PO SCH ×5 (05:22→23:18)
[2017-11-20] MEDS: hydrALAZINE 25 MG TAB NG SCH ×3 (05:45→22:00)
[2017-11-20 06:39] LABS: BASOPHILS # (AUTO) 0.2 K/uL (0.00-0.22); BASOPHILS % (AUTO) 1.3 % (0.0-2.0); HEMATOCRIT 32.4 % (36-52); HEMOGLOBIN 10.7 g/dL (12.0-18.0); LYMPHOCYTES # (AUTO) 0.7 K/uL (2.0-11.5); LYMPHOCYTES % (AUTO) 5.3 % (20.5-51.1); MEAN CORPUSCULAR HEMOGLOBIN 28 pg (27-31); MEAN CORPUSCULAR HGB CONC 33 g/dL (33-37); MEAN CORPUSCULAR VOLUME 85.9 fL (80-94); MONOCYTES # (AUTO) 0.6 K/uL (0.8-1.0); MONOCYTES % (AUTO) 4.1 % (1.7-9.3); NEUTROPHILS # (AUTO) 12.6 K/uL (1.8-7.7); NEUTROPHILS % (AUTO) 89.3 % (42.2-75.2); PLATELET COUNT (AUTO) 308 K/uL (140-450); RED BLOOD CELL COUNT(AUTO) 3.78 MIL/uL (4.20-6.10); RED CELL DISTRIBUTION WIDTH 15.1 % (11.6-13.7); WHITE BLOOD COUNT (AUTO) 14.1 K/uL (4.8-10.8)
[2017-11-20 07:12] LABS: PROTHROMBIN TIME 15.1 secs (10.8-13.4)
--- NOTE | 2017-11-20 07:20 | NUR ---
RECEIVED REPORT FROM SCRIPT GIRL. PT RESTING IN BED COMFORTABLE. SR ON MONITOR. VS WNL. SKIN DRY AND WARM TOO TOUCH. ON ETT TO VENT. ETT TUBE 23 AT LIP. FIO2 30%, TV 500 RR 12 PEEP 5. LUNGS COARSE ON AUSCULTATION. EVEN EXPANSION. NG TUBE VERIFIED, POSITIVE PLACEMENT. RESIDUAL 19 ML. PERIPHERAL LINE ON LEFT FOREARM 20 G, INTACT LINE. VERSED RUNNING AT 2 ML/HR. D5% NS RUNNING AT 50 ML/HR. EDEMATOUS LEFT UPPER EXTREMITY. BRUISES NOTED ON LEFT UPPER EXTREMITIES. ABDOMEN SOFT ROUND AND NON-TENDER. ACTIVE BOWEL SOUND. ESPOSITO CATH IN PLACE DRAINING YELLOW URINE VIA GRAVITY. SCDS IN PLACE. EDEMATOUS LEFT LOWER EXTREMITY. NON BLANCHABLE REDNESS ON LEFT GREAT TOE. HOB ELEVATED. KEPT BED IN LOW POSITION LOCKED. WILL CONTINUE TO MONITOR.
--- NOTE | 2017-11-20 07:20 | NUR ---
REPORT GIVEN TO MORNING RN FOR CONTINUITY OF CARE. PT IN STABLE CONDITION AT THIS TIME.
[2017-11-20 07:21] LABS: ANION GAP 14.7 (8-16); CARBON DIOXIDE 24.1 mmol/L (21-32); CHLORIDE 113 mmol/L (98-107); GLUCOSE 156 mg/dL (74-106); POTASSIUM 3.8 mmol/L (3.5-5.1); SODIUM SERUM 148 mmol/L (136-145); UREA NITROGEN, BLOOD 27 mg/dL (7-18)
--- NOTE | 2017-11-20 07:45 | NUR ---
MORNING CARE PROVIDED. KEPT PT CLEAN AND DRY.
--- NOTE | 2017-11-20 08:30 | NUR ---
LATE ENTRY VENTILATOR SETTINGS BT DR ANGEL
--- NOTE | 2017-11-20 08:30 | NUR ---
DR. STORY AT BEDSIDE. PT PUT ON CPAP. TOLERATING WELL. STOPPED VERSED. HELD NG TUBE FEEDING. ON CONTINUE MONITORING.
--- NOTE | 2017-11-20 08:48 | NUR ---
MACIEJ RICHARD EXTUBATE PATIENT Addendum: 11/20/17 at 1923 by William Lieberman RT KEEP OXYGEN SATURATION GREATER THAN 92% POST EXTUBATION PLACED PATIENT ON SUPPLEMENTAL OXYAGEN AT 2LPM VIA NC
--- NOTE | 2017-11-20 08:48 | NUR ---
DR. STORY, RT AND CHARGE NURSE AT BEDSIDE.
--- NOTE | 2017-11-20 08:50 | NUR ---
PT EXTUBATED. TOLERATED WELL.
[2017-11-20] MEDS: ALBUTEROL SULFATE/IPRATROPIU 3 ML SOL IH SCH ×3 (08:53→18:57)
[2017-11-20] MEDS: METOPROLOL 50 MG TAB GT SCH ×2 (09:40→20:31)
[2017-11-20] MEDS: NACL 0.45% 1,000 ML IV SCH (09:40)
[2017-11-20] MEDS: SERTRALINE 50 MG TAB GT SCH (09:41)
[2017-11-20] MEDS: GABAPENTIN 300 MG CAP GT SCH ×2 (09:41→20:31)
[2017-11-20] MEDS: LACTOBACILLUS RHAMNOSUS GG 1 EACH CAP NG SCH (09:42)
[2017-11-20] MEDS: PANTOPRAZOLE 40 MG INJ VIAL IVP SCH (09:42)
[2017-11-20] MEDS: FAMOTIDINE 20 MG TAB NG SCH (09:42)
[2017-11-20] MEDS: DOCUSATE 100 MG/10 ML UDC PO SCH ×2 (09:42→20:32)
[2017-11-20] MEDS: SENNA 8.6 MG TAB PO SCH (09:43)
[2017-11-20] MEDS: amLODIPine 5 MG TAB GT SCH ×2 (10:23→22:00)
[2017-11-20] MEDS: HYDRAGUARD CREAM TP SCH (10:41)
--- NOTE | 2017-11-20 10:42 | NUR ---
SEEN BY DR. GOLDBERG AND FRANCIS. SAID OKAY TO HAVE ICE CHIPS AND WATER. WILL WAIT FOR SWALLOW EVAL TO START FEEDING FROM MOUTH. DONOT RESUME NG TUBE FEEDING TILL SWALLOW EVAL DONE. WILL FOLLOW UP ORDER.
--- NOTE | 2017-11-20 10:44 | NUR ---
PT CLEANED. KEPT DRY AND COMFORTABLE. VS WNL. WILL CONTINUE TO MONITOR.
[2017-11-20] MEDS: LISINOPRIL 20 MG TAB PO SCH (11:59)
--- NOTE | 2017-11-20 12:07 | NUR ---
PT SEEN BY DR. KEENE.
[2017-11-20] MEDS ORDERED: LOPERAMIDE 2 MG CAP PO PRN (12:50)
[2017-11-20] MEDS: ACETAMINOPHEN 325 MG TAB PO PRN ×2 (13:36→20:32)
--- NOTE | 2017-11-20 14:23 | NUR ---
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 PAST MEDICAL HISTORY INCLUDE HTN,CVA AND CAD ALL ABOVE INFORMATION WAS OBTAINED FROM THE ADMISSION H&P. LABS ARE WBC 14.1, H/H 10.7/32.4, GLUCOSE 156 AND ALBUMIN 2.0.PATIENT IS AWAKE. SKIN WARM TO TOUCH WNL, SKIN TURGOR GOOD. CAPILLARY REFILLED <3 SEC. TOENAILS ARE SHORT AND THICKENED, NO HAIR GROWTH, BILATERAL DORSAL PEDAL PULSES PRESENT. ESPOSITO CATH PATENT WITH SMALL AMOUNT OF CLEAR URINE OUTPUT. PT IS INCONTINENT OF BOWEL. PLAN OF CARE DISCUSSED WITH PRIMARY RN AND PT. INTEGUMENTARY: BILATERAL LOWER EXTREMITIES -DRYNESS INCONTINENT ASSOCIATE DERMATITIS TO SACRALCOCCYX TO PERIANAL 3.5X1.5X0.1 CM WOUND BED IS MOIST AND PINK, NO ODOR, SURROUNDING AREAS(R/L BUTTOCKS) PALE PINK LEFT AND RIGHT HEELS- BLANCHABLE REDNESS RECOMMENDATIONS: -CLEANSE SACRLCOCCYX IAD WITH SOAP AND WATER, PAT DRY, APPLY Z-GUARD BIDWC AND LEAVE OPEN TO AIR -TURN AND REPOSITION PATIENT Q 2H -ASSESS AND MONITOR SKIN CONDITION DURING POSITION CHANGE, PLEASE PAY PARTICULAR ATTENTION TO HEELS -OFFLOAD BILATERAL HEELS BY PLACING PILLOWS UNDER CALVES AT ALL TIMES, UNLESS OTHERWISE CONTRAINDICATED -PRESSURE REDISTRIBUTION SURFACE THERAPY -KEEP SKIN CLEAN AND DRY AT ALL TIMES. MAY APPLY BODY LOTION TO DRYNESS AREA. RECOMMENDATIONS DISCUSSED WITH PRIMARY RN WILL FOLLOW UP PATIENT Q7- 10 DAYS AND PRN. PLEASE CONTACT WOUND CARE NURSE FOR ANY CONCERNS, QUESTIONS AND CHANGES IN SKIN CONDITION.
--- NOTE | 2017-11-20 14:43 | NUR ---
PT EVALUATED BY ST. PT ATE WITHOUT DISCOMFORT.
[2017-11-20] MEDS ORDERED: Z-GUARD PASTE TP PRN (15:10)
--- NOTE | 2017-11-20 15:20 | NUR ---
PT RESTING IN BED. NO RESPIRATORY DISTRESS NOTED. NO CHANGE IN LOC. WILL CONTINUE TO MONITOR
[2017-11-20] MEDS: LEVOFLOXACIN 750 MG/D5W PREMIX 150 ML IV SCH (15:29)
--- NOTE | 2017-11-20 15:39 | NUR ---
ST RECOMMENDED OKAY TO HAVE MECHANICAL SOFT GROUND, THIN LIQUID DIET AND MEDS WITH LIQUID. POSITIONING: FULLY UPRIGHT, REMAIN UPRIGHT FOR 20 MINS AFTER, SET UP TRAY AND REVIEW PRECAUTIONS, PT CAN SELF FEED, EAT DRINK SLOWLY, SMALL BITES, CHIPS, ALT LIQUIDS AND SOLID, CHECKED FOR POCKETED FOOD.
[2017-11-20] MEDS ORDERED: WARFARIN 5 MG TAB PO SCH (17:00)
[2017-11-20] MEDS: Z-GUARD PASTE TP SCH (17:07)
--- NOTE | 2017-11-20 17:17 | NUR ---
WATER VALVE REPAIRER NOTE 2:00-2:45 Bedside swallow evaluation completed. Please refer to WATER VALVE REPAIRER evaluation for full report. Recommend: Mechanical soft ground texture + thin liquids Upright 90 degrees and 20 mins after PO intake Small bites/sips at slow rate WATER VALVE REPAIRER to follow 1X/wk X 1/wk for diet tolerance Educated pt on safe swallow strategies. Swallow precautions placed at [facility]. [id number]: CJ G8997: CI NOMS 5 Alvaro Reyes, WATER VALVE REPAIRER
--- NOTE | 2017-11-20 17:20 | NUR ---
PULL NG TUBE OUT PER ORDER. PT ABLE TO TAKE MEDICINE FROM MOUTH. TOLERATING WELL. NO ACUTE DISTRESS NOTED. WILL CONTINUE TO MONITOR. Addendum: 11/20/17 at 1729 by Twyla Campbell RN REMOVED NG TUBE ORDER.
--- NOTE | 2017-11-20 17:29 | NUR ---
CATHETER CARE PROVIDED. PT CLEANED. KEPT IN COMFORTABLE POSITION.
--- NOTE | 2017-11-20 18:32 | NUR ---
PT DOESN'T WANT TO KEEP BP CUFF ON.
--- NOTE | 2017-11-20 18:55 | NUR ---
RT AT BEDSIDE.
--- NOTE | 2017-11-20 18:58 | NUR ---
DR. COLON MADE AWARE ABOUT SPUTUM CULTURE AND URINE CULTURE RESULT.
--- NOTE | 2017-11-20 19:20 | NUR ---
BEDSIDE REPORT GIVEN TO SPECIALTY TRANSFORMER ASSEMBLER RN FOR CONTINUITY OF CARE. PT ON STABLE CONDITION.
--- NOTE | 2017-11-20 19:25 | NUR ---
RECEIVED REPORT FROM MARIA EUGENIA TURNER. INITIAL ASSESSMENT COMPLETED. PT AWAKE, ALERT, ORIENTED X 3. FOLLOWS COMMANDS. ATTACHED TO ASSOCIATE PROFESSOR OF ECONOMICS, PULSE OXIMETER. IVF ACCESS AT LEFT FOREARM, PATEN, INTACT. ESPOSITO CATH IN PLACE. NO SIGNS OF DISTRESS NOTED. BED IN LOW POSITION, SAFETY MEASURE ENSURE. SCDS IN PLACE. WILL CONTINUE TO MONITOR.
[2017-11-20] MEDS: ATORVASTATIN 20 MG TAB PO SCH (20:31)
--- NOTE | 2017-11-20 21:02 | NUR ---
DR. ZIMMER IN THE UNIT. UPDATED OF PATIENT'S CONDITION. DR. ZIMMER AWARE OF PATIENT'S BRADYCARDIC EPISODE, LOWEST HEART RATE WAS 46. WILL CONTINUE TO MONITOR.
[2017-11-20] MEDS ORDERED: CYCLOBENZAPRINE 10 MG TAB PO SCH (23:00)
--- NOTE | 2017-11-20 23:58 | NUR ---
PT COMPLAINT OF STUFFY NOSE, DR. ZIMMER NOTIFIED. NO SIGN OF SOB, NOTED. PT IS AWAKE ALERT, ORIENTED X 3. KPAD APPLIED ORDERED. WILL CONTINUE TO MONITOR.
[2017-11-21] VITALS: BP 117/69
[2017-11-21 02:00] VITALS: BP 135/83
[2017-11-21] MEDS: LORazepam 2 MG/ML VIAL IM/IVP PRN (02:27)
--- NOTE | 2017-11-21 02:50 | NUR ---
PT ASLEEP AT THIS TIME. NO SIGNS OF DISTRESS. WILL CONTINUE TO MONITOR.
[2017-11-21 04:00] VITALS: BP 124/75
[2017-11-21] MEDS: hydrALAZINE 25 MG TAB NG SCH ×3 (05:00→12:14)
[2017-11-21] MEDS: NACL 0.45% 1,000 ML IV SCH (05:01)
[2017-11-21 05:02] LABS: BASOPHILS % (AUTO) 0.2 % (0.0-2.0); EOSINOPHILS % (AUTO) 0.1 % (0.0-4.0); HEMATOCRIT 31.3 % (36-52); HEMOGLOBIN 10.2 g/dL (12.0-18.0); LYMPHOCYTES # (AUTO) 1.3 K/uL (2.0-11.5); LYMPHOCYTES % (AUTO) 9.6 % (20.5-51.1); MEAN CORPUSCULAR HEMOGLOBIN 28 pg (27-31); MEAN CORPUSCULAR HGB CONC 33 g/dL (33-37); MEAN CORPUSCULAR VOLUME 86.1 fL (80-94); MONOCYTES # (AUTO) 0.6 K/uL (0.8-1.0); MONOCYTES % (AUTO) 4.2 % (1.7-9.3); NEUTROPHILS # (AUTO) 11.6 K/uL (1.8-7.7); NEUTROPHILS % (AUTO) 85.9 % (42.2-75.2); PLATELET COUNT (AUTO) 288 K/uL (140-450); RED BLOOD CELL COUNT(AUTO) 3.63 MIL/uL (4.20-6.10); WHITE BLOOD COUNT (AUTO) 13.5 K/uL (4.8-10.8)
[2017-11-21] MEDS: SODIUM PHOS / POTASSIUM PHOS 1 PKT PDR PO SCH ×3 (05:02→12:19)
[2017-11-21] MEDS: PIPER/TAZO 3.375GM/D5W PREMIX 50 ML IV SCH ×2 (05:02→12:14)
[2017-11-21 05:13] LABS: PROTHROMBIN TIME 26.8 secs (10.8-13.4)
--- NOTE | 2017-11-21 05:19 | NUR ---
APRESOLINE AND NEUTRA-PHOS WASTED. TRIED TO GIVE TO PATIENT. BUT PATIENT IS SO SLEEPY DUE TO ATIVAN DOSE THAT WAS GIVEN. UNABLE TO SWALLOW PROPERLY. WILL TRANSFER TO TELE UNIT BY CHARGE NURSE RUEDA AND RN CAR PUSHER WENDY. NO SIGNS OF DISTRESS. Addendum: 11/21/17 at 0530 by Nikky Howell RN RN CAR PUSHER WENDY, CHARGE NURSE PRUDENCE RUEDA LVN AWARE OF THE WASTED MEDICATIONS.
--- NOTE | 2017-11-21 05:25 | NUR ---
PATIENT TRANSFERRED TO THE FLOOR. WILL GIVE REPORT TO MATTHEW FOSS. NO SIGNS OF DISTRESS, NO SOB NOTED.
--- NOTE | 2017-11-21 05:30 | NUR ---
RECD. TRANSFER FROM ICU, VERY DROWSY. ALERT, ORIENTED TO SELF. RESPIRATION EVEN AND UNLABORED. IVPB ZOSYN INFUSING AT 100 ML/HR, LEFT FOREARM G20. WITH PITTING EDEMA+1 ON BILATERAL UPPER EXTREMITIES. WITH HEATING PAD BEHIND NECK, ORDERED BY MD FOR NECK PAIN. F/C PATENT DRAINING CLEAR YELLOW URINE. ON BILATERAL LEG SEQUENTIALS. WITH REDNESS ON SACROCOCCYGEAL AND PERINEAL AREA. ORIENTED TO HOSPITAL SETTING. PLAN OF CARE FOR THE SHIFT DISCUSSED. JUST NODS HEAD, AND WENT BACK TO SLEEP. NO APPEARANCE OF PAIN NOTED 0/10. SR, BIPHASIC T ON TELE MONITORING.
--- NOTE | 2017-11-21 05:33 | NUR ---
Patient's Plan of Care was discussed and reviewed with WAFER POLISHING WORKER: PRUDENCE FLETCHER
[2017-11-21 06:00] VITALS: BP 134/72
[2017-11-21 06:43] LABS: ANION GAP 9.7 (8-16); CARBON DIOXIDE 27.6 mmol/L (21-32); CHLORIDE 111 mmol/L (98-107); CREATININE 0.8 mg/dL (0.7-1.3); GLUCOSE 88 mg/dL (74-106); POTASSIUM 3.3 mmol/L (3.5-5.1); SODIUM SERUM 145 mmol/L (136-145); UREA NITROGEN, BLOOD 17 mg/dL (7-18)
[2017-11-21] MEDS: ALBUTEROL SULFATE/IPRATROPIU 3 ML SOL IH SCH ×2 (07:10→13:00)
--- NOTE | 2017-11-21 07:15 | NUR ---
STILL SLEEPING COMFORTABLY IN BED, BREATHING TX ON-GOING. ENDORSED TO AM NURSE FOR CONTINUITY OF CARE.
--- NOTE | 2017-11-21 07:20 | NUR ---
RECEIVED PT FROM BLADDER TRIMMER NURSEPRUDENCE, PT IS ASLEEP LYING ON THE BED, RESPIRATIONS EVEN ABUT O2 SAT IS JUST 90%, PT WAS PUT ON 3L O2 NC. RT AGITATOR OPERATOR CAME AND GAVE BREATHING TREATMENT TO THE PT. SIDE RAILS ARE UP AND CALL LIGHT WITHIN REACH, SAFETY PRECAUTION ENFORCED. PT HAS AN IV LINE ON THE LEFT FOREARM WITH 1/2 NS RUNNING AT 50ML/HR, INTACT. SCD AND ESPOSITO CATHETER IN PLACE. NO SIGN OF DISTRESS NOTED AND WILL CONTINUE TO MONITOR.
--- NOTE | 2017-11-21 07:50 | NUR ---
DE IS AWAKE AND LYING ON THE BED, VITAL SIGNS TAKEN AND IS STABLE. NO SIGN OF DISTRESS NOTED. WILL CONTINUE TO MONITOR.
--- NOTE | 2017-11-21 08:05 | NUR ---
PLACED 2 L N/C PT DESAT 88
--- NOTE | 2017-11-21 08:51 | NUR ---
PT IS AWAKE AND VERBALIZED A PAIN RATE OF 8/10. MEDICATION GIVEN THRU IV PUSH AND PT TOLERATED IT. NO SIGN OF DISTRESS NOTED AND WILL RE-ASSESS PT AFTER AN HOUR.
[2017-11-21] MEDS: HYDRAGUARD CREAM TP SCH (09:00)
[2017-11-21] MEDS: Z-GUARD PASTE TP SCH (09:00)
[2017-11-21] MEDS ORDERED: LORATADINE 10 MG TAB PO SCH ×2 (09:00)
[2017-11-21] MEDS: DOCUSATE 100 MG/10 ML UDC PO SCH (09:15)
[2017-11-21] MEDS: SERTRALINE 50 MG TAB GT SCH (09:16)
[2017-11-21] MEDS: LISINOPRIL 20 MG TAB PO SCH (09:16)
[2017-11-21] MEDS: GABAPENTIN 300 MG CAP GT SCH (09:16)
[2017-11-21] MEDS: METOPROLOL 50 MG TAB GT SCH (09:17)
[2017-11-21] MEDS: CYCLOBENZAPRINE 10 MG TAB PO SCH ×2 (09:17→12:13)
[2017-11-21] MEDS: SENNA 8.6 MG TAB PO SCH (09:18)
[2017-11-21] MEDS: FAMOTIDINE 20 MG TAB NG SCH (09:18)
[2017-11-21] MEDS: amLODIPine 5 MG TAB GT SCH (09:18)
[2017-11-21] MEDS: LACTOBACILLUS RHAMNOSUS GG 1 EACH CAP NG SCH (09:18)
--- NOTE | 2017-11-21 09:20 | NUR ---
PT IS AWAKE AND MEDICATIONS GIVEN, VITAL SIGNS CHECKED PRIOR TO ADMINISTERING MEDICATIONS AND VITAL SIGNS STABLE. NO SIGN OF DISTRESS NOTED AND WILL MONITOR.
[2017-11-21] MEDS: PANTOPRAZOLE 40 MG INJ VIAL IVP SCH (09:28)
--- NOTE | 2017-11-21 10:00 | NUR ---
PT IS AWAKE AND CLEANED WITH THE HELP OF ELECTRICAL EQUIPMENT TESTER, ELTINA, MEDICATIONS APPLIED ON SACRAL PART. PT IS AMDE COMFORTABLE AND WILL MONITOR.
[2017-11-21] MEDS: MORPHINE SULFATE 2 MG/ML SYR IVP PRN (10:44)
--- NOTE | 2017-11-21 11:49 | NUR ---
INFORMED DR. COLON THAT THE PT'S POTASSIUM LEVEL IS 3.3. DR. COLON ACKNOWLEDGED AND SAID "OK".
[2017-11-21 12:00] VITALS: BP 152/85
--- NOTE | 2017-11-21 12:20 | NUR ---
PT IS AWAKE AND VITAL SIGNS TAKEN AND IS STABLE, MEDICATIONS GIVWEN THRU ORAL AND IVPB, PT TOLERATED IT. NO SIGN OF DISTRESS NOTED AND WILL CONTINUE TO MONITOR.
--- NOTE | 2017-11-21 12:31 | NUR ---
Dance Master Note: Per Angelo from [facility] , patient can go to bed 49A after 3pm today, accepting physician is , correctional case records supervisor Raul aware. correctional case records supervisor Raul will follow up regarding transportation.
--- NOTE | 2017-11-21 12:40 | NUR ---
DOORSHAKER NOTE [id number] S/O: Pt asleep but easily awakened. Pt alert and cooperative. Pt continues to be edentulous and reports tolerating current diet fine. RN reported pt appearing to tolerate diet without difficulties. A/P: Reviewed safe swallow strategies with pt. Pt given PO trials of mechanical soft ground food texture and thin liquids. Pt able to masticate PO trials and manage bolus without significant difficulty. Pt demonstrated a timely swallow and appropriate laryngeal elevation/excursion. Vocal quality was clear after swallows. No oral residue nor pocketing of food was observed after swallows. Recommend continue with mechanical soft ground diet and thin liquids. DOORSHAKER to d/c pt from skilled ST services secondary to goals met and program completed. G8996: CJ G8997: CI G8998: CI Swallow NOMS 6 Alvaro Reyes, DOORSHAKER
--- NOTE | 2017-11-21 13:01 | NUR ---
PT IS ASLEEP HHN NOT GIVEN
--- NOTE | 2017-11-21 13:19 | NUR ---
Regulatory Compliance Manager Notes: I faxed to Angelo cap and hat production supervisor at [facility] Patient's Clinical informations, orders for patient to return to [facility]placed By [facility] ([facility]) for Skilled care for IV Antibiotics. Office Professional and Case Regulatory Compliance Manager are aware.
--- NOTE | 2017-11-21 14:33 | NUR ---
Patient will be returning to [facility] [place] [facility] after 3 pm. will go to room 49 A.
--- NOTE | 2017-11-21 15:00 | NUR ---
PT IS AWAKE AND WAS CLEANED AND DRESSED WITH THE HELP OF THE BUSINESS SOLUTIONS CONSULTANTEDGAR, AND MADE READY FOR COMPUTER SUPPORT TECHNICIAN LATER BY [facility] AND BACK TO [facility] [place] [place]. PT IS MADE COMFORTABLE AND NO SIGN OF DISTRESS AND WILL MONITOR.
--- NOTE | 2017-11-21 15:10 | NUR ---
GAVE REPORT TO MATTHEW CHERRY OF [facility] ABOUT THE PT. PT WILL BE PUT IN ROOM 49-A AND WILL BE UNDER DR. LYNCH. MATTHEW CHERRY WAS INFORMED THAT PT WAS ON A FLOEY CATHETER AND THAT PT WILL BE CONTINUED ON L[place]AQUIN FOR 5 MORE DAYS. JO ANN, RAJAN.
[2017-11-21] MEDS: LEVOFLOXACIN 750 MG/D5W PREMIX 150 ML IV SCH (15:15)
--- NOTE | 2017-11-21 15:15 | NUR ---
11/21/17 RD FOLLOW UP COMPLETED PLEASE REFER TO NUTRITION PROGRESS NOTE UNDER CARE ACTIVITY FOR ESTIMATED NUTRITIONAL NEEDS. 1. CONTINUE MECHANICAL SOFT DIET TOLERATED 2. RD TO FOLLOW-UP 3-5 DAYS, MODERATE RISK AD HINOJOSA RD
[2017-11-21 16:00] VITALS: BP 135/86
--- NOTE | 2017-11-21 16:28 | NUR ---
Television Cable Installer Note: Director of Case Management/Television Cable Installer Lis spoke with patient's daughter Preeti Gibbs via phone. Per Preeti, she is in agreement with paying for transportation for patient to return to [facility] today. I called [facility] and spoke with Gisselle, she stated case work aide Raul arranged transportation for patient and [facility] will be coming to our hospital shortly. She reported Raul requested for [facility] to bill hospital for transportation. I told Gisselle patient's daughter Preeti is in agreement with paying for transportation. Per Gisselle, she is unsure if they can change billing information from hospital being billed to patient's daughter Preeti being billed since payment needs to be complete before [facility] arrives to hospital. Gisselle referred me to speak with Lesley from their billing dept, I explained to Lesley situation. Per Lesley, she will call Preeti and inquire if she in agreement with payment and if she is able to verify this within a timely manner she will make billing from hospital to Preeti in their system so that it Preeti is the one responsible for payment.
--- NOTE | 2017-11-21 16:45 | NUR ---
DISCHARGED PT VIA GURNEY WITH THE [facility] PERSONNEL, ARM BANDS REMOVED. PT WAS ON A SALINE LOCK ON THE LEFT FOREARM G. 20, INTACT. DISCHARGED INSTRUCTIONS GIVEN AND PT VERBALIZED UNDERSTANDING. DISCHARGED PAPERS HANDED ON TO [facility] PERSONN[facility]. PT IS STABLE AT THIS TIME.
[2017-11-21] MEDS ORDERED: WARFARIN PO SCH ×2 (17:00)
== END 2017-11-21 16:45 | DRG 871 ==
LOC: MED 07:10 → MIC 09:56 → MTU 11-21 05:20
PROVIDERS: ADMIT General Practice; ATTEND General Practice
PROC: 5A1945Z Respiratory Ventilation, 24-96 Consecutive Hours (ICD-10-PCS; principal; 2017-11-17)
PROC: 0BH17EZ Insertion of Endotracheal Airway into Trachea, Via Natural or Artificial Opening (ICD-10-PCS; 2017-11-17)
PROC: 30233L1 Transfusion of Nonautologous Fresh Plasma into Peripheral Vein, Percutaneous Approach (ICD-10-PCS; 2017-11-17)
PROC: 30233K1 Transfusion of Nonautologous Frozen Plasma into Peripheral Vein, Percutaneous Approach (ICD-10-PCS; 2017-11-17)
DX: A41.9 Sepsis, unspecified organism (principal); R65.21 Severe sepsis with septic shock; J69.0 Pneumonitis due to inhalation of food and vomit; J96.01 Acute respiratory failure with hypoxia; I21.A1 Myocardial infarction type 2; N17.0 Acute kidney failure with tubular necrosis; G92 Toxic encephalopathy; E43 Unspecified severe protein-calorie malnutrition; N39.0 Urinary tract infection, site not specified; N17.9 Acute kidney failure, unspecified; I50.32 Chronic diastolic (congestive) heart failure; I69.354 Hemiplegia and hemiparesis following cerebral infarction affecting left non-dominant side; D68.32 Hemorrhagic disorder due to extrinsic circulating anticoagulants; I42.9 Cardiomyopathy, unspecified; E87.0 Hyperosmolality and hypernatremia; E78.5 Hyperlipidemia, unspecified; F03.90 Unspecified dementia, unspecified severity, without behavioral disturbance, psychotic disturbance, mood disturbance, and anxiety; K21.9 Gastro-esophageal reflux disease without esophagitis; T45.515A Adverse effect of anticoagulants, initial encounter; F32.9 Major depressive disorder, single episode, unspecified; G89.29 Other chronic pain; G47.00 Insomnia, unspecified; I48.0 Paroxysmal atrial fibrillation; E87.6 Hypokalemia; E83.42 Hypomagnesemia; E83.39 Other disorders of phosphorus metabolism; G62.9 Polyneuropathy, unspecified; E86.0 Dehydration; I48.2 Chronic atrial fibrillation; I25.10 Atherosclerotic heart disease of native coronary artery without angina pectoris; I11.0 Hypertensive heart disease with heart failure; K59.09 Other constipation; Y92.89 Other specified places as the place of occurrence of the external cause; Z79.899 Other long term (current) drug therapy; Z85.828 Personal history of other malignant neoplasm of skin; Z90.49 Acquired absence of other specified parts of digestive tract; Z68.27 Body mass index [BMI] 27.0-27.9, adult
CPT/HCPCS: 36415; 36600; 70450; 71045; 80048; 80053; 80305; 81001; 82040; 82140; 82150; 82533; 82803; 83036; 83605; 83690; 83735; 83880; 84100; 84439; 84443; 84484; 85025; 85610; 85730; 86886; 86900; 86901; 86920; 87040; 87070; 87081; 87086; 87186; 87205; 89220; 92526; 92610; 93005; 94002; 94003; 94640; 97799; C9113; J1642; J1720; J1940; J1956; J2060; J2250; J2270; J2543; J3430; J3490; J7030; J7042; J7060; J7620; P9017; Q0092

== ENCOUNTER 2018-07-04 17:25 | Emergency (ER) | payer OTHER, MEDICAID ==
[~2018-07-04] VITALS: Ht 172.7 cm; Wt 88.5 kg
[2018-07-04 17:25] VITALS: BP 123/66
[~2018-07-04 17:25] MED LIST changes: -CLIN300C2 PO; -LEVO750T2 PO
--- NOTE | 2018-07-04 17:25 | NUR ---
PT [facility] TO ER BED 05
--- NOTE | 2018-07-04 17:43 | NUR ---
SUBMITTED TELEPSYCH REQUEST PER DR. GAUTHIER
--- NOTE | 2018-07-04 17:48 | NUR ---
PT BIB EMS [place] [facility]. PER STAFF AT [facility], PT WAS SENT TO ED FOR SI IDEATION. ON TRIAGE, PT CURRENTLY DENIES SI. REPORTS 5/10 NECK PAIN PMH---UTI/MENTAL WEAKNESS, AFIB, STROKE R HEMIPLEGIA, CHF, HYPERLIPIDEMIA, DEPRESSION, MOOD DISORDER, ARTHRITIS, OSTEOPEROSIS NKA
[2018-07-04] MEDS ORDERED: ACETAMINOPHEN 325 MG TAB PO ONE (19:15)
--- NOTE | 2018-07-04 19:45 | NUR ---
RETURN CALL FROM TELEPSYCH DOCTOR WHO SPOKE WITH MARIA EUGENIA MORA
--- NOTE | 2018-07-04 19:51 | NUR ---
SPOKE WITH TELE PSYCH , DR DANIELS. TO SPEAK WITH PT.
--- NOTE | 2018-07-04 19:59 | NUR ---
TELEPSYCH DOCTOR SPEAKING WITH PATIENT VIA PHONE
--- NOTE | 2018-07-04 20:03 | NUR ---
DR. DANIELS UNABLE TO CONNECT VIA Seafile MONITOR, CALLED VIA TELEPHONE . HANDED PT THE PHONE.
--- NOTE | 2018-07-04 20:25 | NUR ---
RECEIVED CALL FROM DR. DANIELS. PER , PT IS NOT SUICIDAL AND DOES NOT MEET [address]. STATED THAT REPORT WILL BE FAXED
--- NOTE | 2018-07-04 20:49 | NUR ---
PROVIDED PT WITH [employer]UR[employer] S[employer]WICH.
--- NOTE | 2018-07-04 21:43 | NUR ---
PT LAYING IN BED, RR EVEN AND UNLABORED. VSS. ALL NEEDS MET.
--- NOTE | 2018-07-04 21:50 | NUR ---
CALLED REPORT TO GABINO IN [facility]. AWARE THAT PT IS COMING BACK TO FACILITY. NOTIFIED ETA FOR TRANSPORT, PT TO BE PICKED UP AT 2200.
--- NOTE | 2018-07-04 22:42 | NUR ---
PT LAYING IN BED, RR EVEN AND UNLABORED. VS NOTED. PT DENIES ANY CP, SOB, DIZZINESS, OR PAIN. ALL NEEDS MET. TRANSPORT ETA AT 2300.
[2018-07-04 23:37] VITALS: BP 124/56
--- NOTE | 2018-07-04 23:37 | NUR ---
Patient discharged with v/s stable. Written and verbal after care instructions given and explained. Patient verbalized understanding. Taken via gurney with [facility] to [facility]. All questions addressed prior to discharge. Advised to follow up with PMD.
== END 2018-07-04 23:37 | disposition home or self-care (01) ==
LOC: MED 17:25
DX: F32.9 Major depressive disorder, single episode, unspecified (principal); I50.9 Heart failure, unspecified; F03.90 Unspecified dementia, unspecified severity, without behavioral disturbance, psychotic disturbance, mood disturbance, and anxiety; K21.9 Gastro-esophageal reflux disease without esophagitis; I11.0 Hypertensive heart disease with heart failure; Z86.73 Personal history of transient ischemic attack (TIA), and cerebral infarction without residual deficits; Z79.899 Other long term (current) drug therapy
CPT/HCPCS: 99283

== ENCOUNTER 2020-08-16 06:05 | Inpatient (IN) | payer OTHER, SELFPAY ==
[~2020-08-16] VITALS: Ht 177.8 cm; Wt 81.6 kg
[~2020-08-16 06:05] MED LIST changes: -LISI-420 PO; +LISI-487 PO; -NALO25TA PO; +NALO25TA3 PO
[2020-08-16 06:08] VITALS: BP 126/68
[2020-08-16 07:05] LABS: HEMOGLOBIN 14.6 g/dL (12.0-18.0); MEAN CORPUSCULAR HEMOGLOBIN 31 pg (27-31); MEAN CORPUSCULAR HGB CONC 33 g/dL (33-37); MEAN CORPUSCULAR VOLUME 93.8 fL (80-94); PLATELET COUNT (AUTO) 208 K/uL (140-450); RED BLOOD CELL COUNT(AUTO) 4.69 MIL/uL (4.20-6.10); RED CELL DISTRIBUTION WIDTH 14.4 % (11.6-13.7); WHITE BLOOD COUNT (AUTO) 19.1 K/uL (4.8-10.8)
[2020-08-16 07:19] LABS: RSV NEGATIVE (NEGATIVE)
[2020-08-16 07:21] LABS: ANION GAP 9.6 (8-16); ASPARTATE AMINOTRANSFERASE 15 U/L (15-37); CARBON DIOXIDE 32.2 mmol/L (21-32); CHLORIDE 105 mmol/L (98-107); GLUCOSE 121 mg/dL (74-106); POTASSIUM 4.8 mmol/L (3.5-5.1); SODIUM SERUM 142 mmol/L (136-145); TOTAL BILIRUBIN 1.1 mg/dL (0.0-1.0); UREA NITROGEN, BLOOD 24 mg/dL (7-18)
[2020-08-16 07:22] LABS: BASOPHILS % (MANUAL) 0 % (0-2); EOSINOPHILS % (MANUAL) 0 % (0-4); LYMPHOCYTES % (MANUAL) 7 % (20-46); MONOCYTES % (MANUAL) 4 % (5-12)
[2020-08-16 07:27] LABS: C-REACTIVE PROTEIN QUANT 5.7 mg/dL (0.0-0.9)
[2020-08-16 07:29] LABS: D-DIMER < 100 ng/ml (0-400)
[2020-08-16 07:30] LABS: FIBRINOGEN 496 mg/dL (200-400); PROTHROMBIN TIME 11.2 secs (10.8-13.4)
[2020-08-16 07:33] LABS: LACTATE DEHYDROGENASE 177 U/L (85-227)
[2020-08-16] MEDS ORDERED: RIVA20TA PO (07:35)
[2020-08-16 08:48] LABS: BILIRUBIN,URINE 1+ (NEGATIVE); BLOOD, URINE 3+ (NEGATIVE); LEUKOCYTE ESTERASE ,URINE NEGATIVE (NEGATIVE); NITRITE, URINE NEGATIVE (NEGATIVE); UGLUCOSE NEGATIVE (NEGATIVE)
[2020-08-16 08:50] LABS: APPEARANCE,URINE CLOUDY (CLEAR); COLOR,URINE YELLOW (YELLOW)
[2020-08-16] MEDS ORDERED: LEVOFLOXACIN 750 MG/D5W PREMIX 150 ML IV ONE (08:55)
[2020-08-16 09:00] LABS: RBC,URINE 20-50 /HPF (0-5); URINE AMORPHOUS URATE 1+ /HPF (None Seen); WBC,URINE 0-5 /HPF (0-5)
[2020-08-16] MEDS ORDERED: DEXAMETHASONE 4 MG/ML VIAL IVP ONE (09:20)
[2020-08-16] MEDS ORDERED: cefTRIAXone 1,000 MG VIAL ONE (10:46)
[2020-08-16] MEDS ORDERED: AZITHROMYCIN 250 MG TAB PO SCH (11:00)
[2020-08-16] MEDS ORDERED: oxyCODONE 5 MG TAB PO SCH (15:00)
[2020-08-16] MEDS ORDERED: ACETAMINOPHEN 325 MG TAB PO PRN ×2 (15:00→15:15)
[2020-08-16] MEDS ORDERED: methocarbamoL 500 MG TAB PO PRN (15:00)
[2020-08-16] MEDS ORDERED: MAGNESIUM HYDROXIDE 2400 MG/30 ML UDC PO PRN (15:00)
[2020-08-16] MEDS ORDERED: bisacodyL 10 MG SUPP RC PRN (15:00)
[2020-08-16] MEDS ORDERED: MORPHINE SULFATE 2 MG/ML SYR IVP PRN (15:15)
[2020-08-16] MEDS: NACL 0.9% 1,000 ML IV SCH (15:15)
[2020-08-16] MEDS ORDERED: POTASSIUM CHLORIDE 10 MEQ TABER PO PRN (15:15)
[2020-08-16] MEDS ORDERED: ZOLPIDEM 5 MG TAB PO PRN (15:15)
[2020-08-16] MEDS ORDERED: MAG SULF 2000 MG/WATER PREMIX 50 ML IV PRN (15:15)
[2020-08-16] MEDS ORDERED: ONDANSETRON 4 MG/2 ML VIAL IM/IVP PRN (15:15)
[2020-08-16] MEDS ORDERED: DOCUSATE SODIUM 100 MG GELCAP PO PRN (15:15)
[2020-08-16] MEDS ORDERED: LORazepam 2 MG/ML VIAL IM/IVP PRN (15:15)
[2020-08-16] MEDS ORDERED: ALBUTEROL SULFATE/IPRATROPIU 3 ML SOL IH PRN (15:15)
[2020-08-16] MEDS ORDERED: HYDROcodone/APAP 5/325 MG 1 TAB TAB PO PRN (15:15)
[2020-08-16 15:50] VITALS: BP 116/74
[2020-08-16 15:58] LABS: THYROID STIMULATING HORMONE 0.92 uIU/mL (0.34-3.74)
[2020-08-16] MEDS: ISOSORBIDE DINITRATE 10 MG TAB PO SCH (17:00)
[2020-08-16] MEDS: LACTOBACILLUS RHAMNOSUS GG 1 EACH CAP PO SCH (17:00)
[2020-08-16] MEDS ORDERED: ALBUTEROL SULFATE/IPRATROPIU 3 ML SOL IH SCH (18:00)
[2020-08-16 20:00] VITALS: BP 125/88
[2020-08-16] MEDS: hydrALAZINE 25 MG TAB PO SCH (21:00)
[2020-08-16] MEDS ORDERED: ZOLPIDEM 10 MG TAB PO SCH (21:00)
[2020-08-16] MEDS: lisinopriL 20 MG TAB PO SCH (21:00)
[2020-08-16] MEDS: ATORVASTATIN 20 MG TAB PO SCH (21:00)
[2020-08-16] MEDS: amLODIPine 5 MG TAB PO SCH (21:00)
[2020-08-16] MEDS: METOPROLOL SUCCINATE 50 MG TABER PO SCH (21:00)
[2020-08-16] MEDS: DOCUSATE SODIUM 100 MG GELCAP PO SCH (21:00)
[2020-08-16] MEDS ORDERED: PIPERACILLIN/TAZOBACTAM 3.375 GM VIAL IV ONE (21:10)
[2020-08-16] MEDS: PIPERACILLIN/TAZOBACTAM 3.375 GM in DEXTROSE 5% 50 ML IV SCH (21:17)
[2020-08-17] VITALS: BP 130/65
[2020-08-17 04:00] VITALS: BP 148/67
[2020-08-17] MEDS ORDERED: PIPERACILLIN/TAZOBACTAM 3.375 GM VIAL IV ONE (04:34)
[2020-08-17] MEDS: PIPERACILLIN/TAZOBACTAM 3.375 GM in DEXTROSE 5% 50 ML IV SCH ×3 (04:42→20:40)
[2020-08-17] MEDS: hydrALAZINE 25 MG TAB PO SCH ×3 (04:43→20:42)
[2020-08-17 05:49] LABS: ANION GAP 12.8 (8-16); CARBON DIOXIDE 28.2 mmol/L (21-32); CHLORIDE 106 mmol/L (98-107); CREATININE 0.9 mg/dL (0.6-1.3); GLUCOSE 101 mg/dL (74-106); SODIUM SERUM 143 mmol/L (136-145); UREA NITROGEN, BLOOD 24 mg/dL (7-18)
[2020-08-17] MEDS ORDERED: ALBUTEROL SULFATE/IPRATROPIU 3 ML SOL IH SCH (06:00)
[2020-08-17 06:17] LABS: CHOL/HDL RATIO 2.4 (1-4.5)
[2020-08-17] MEDS: NACL 0.9% 1,000 ML IV SCH (07:55)
[2020-08-17 08:00] VITALS: BP 158/90
[2020-08-17 08:12] LABS: BASOPHILS % (AUTO) 0.1 % (0.0-2.0); HEMATOCRIT 40.1 % (36-52); HEMOGLOBIN 13.4 g/dL (12.0-18.0); LYMPHOCYTES # (AUTO) 1.2 K/uL (2.0-11.5); LYMPHOCYTES % (AUTO) 11.9 % (20.5-51.1); MEAN CORPUSCULAR HEMOGLOBIN 31 pg (27-31); MEAN CORPUSCULAR HGB CONC 34 g/dL (33-37); MEAN CORPUSCULAR VOLUME 92.2 fL (80-94); MONOCYTES # (AUTO) 0.6 K/uL (0.8-1.0); MONOCYTES % (AUTO) 6.1 % (1.7-9.3); NEUTROPHILS # (AUTO) 7.9 K/uL (1.8-7.7); NEUTROPHILS % (AUTO) 81.9 % (42.2-75.2); PLATELET COUNT (AUTO) 198 K/uL (140-450); RED BLOOD CELL COUNT(AUTO) 4.35 MIL/uL (4.20-6.10); RED CELL DISTRIBUTION WIDTH 13.9 % (11.6-13.7); WHITE BLOOD COUNT (AUTO) 9.6 K/uL (4.8-10.8)
[2020-08-17] MEDS: DOCUSATE SODIUM 100 MG GELCAP PO SCH ×2 (08:19→20:42)
[2020-08-17] MEDS: FAMOTIDINE 20 MG TAB PO SCH (08:20)
[2020-08-17] MEDS: ISOSORBIDE DINITRATE 10 MG TAB PO SCH ×3 (08:20→16:37)
[2020-08-17] MEDS: amLODIPine 5 MG TAB PO SCH ×2 (08:20→20:42)
[2020-08-17] MEDS: LACTOBACILLUS RHAMNOSUS GG 1 EACH CAP PO SCH (08:20)
[2020-08-17] MEDS: MULTIVITAMIN 1 TAB PO SCH (08:21)
[2020-08-17] MEDS: METOPROLOL SUCCINATE 50 MG TABER PO SCH ×2 (08:21→20:42)
[2020-08-17] MEDS: SENNA 8.6 MG TAB PO SCH (08:21)
[2020-08-17] MEDS: RIVAROXABAN 10 MG TAB PO SCH (08:21)
[2020-08-17] MEDS: lisinopriL 20 MG TAB PO SCH ×2 (08:22→20:42)
[2020-08-17] MEDS: SERTRALINE 50 MG TAB PO SCH (08:22)
[2020-08-17] MEDS ORDERED: NON-FORMULARY ITEM (Naloxegol Oxalate (Movantik) 25 MG) PO SCH (09:00)
[2020-08-17] MEDS ORDERED: AZITHROMYCIN 500 MG in DEXTROSE 5% 250 ML IV ONE (09:00)
[2020-08-17 10:06] LABS: T4 (THYROXINE) 8.3 ug/dL (4.5-12.0)
[2020-08-17 12:00] VITALS: BP 164/96
[2020-08-17 16:00] VITALS: BP 142/79
[2020-08-17] MEDS: DEXT 5% / NACL 0.9% 500 ML IV SCH (16:36)
[2020-08-17 20:00] VITALS: BP 158/78
[2020-08-17] MEDS: ATORVASTATIN 20 MG TAB PO SCH (20:42)
[2020-08-18] VITALS: BP 142/55
[2020-08-18] MEDS: DEXT 5% / NACL 0.9% 500 ML IV SCH ×3 (00:30→16:28)
[2020-08-18 04:00] VITALS: BP 159/96
[2020-08-18] MEDS: PIPERACILLIN/TAZOBACTAM 3.375 GM in DEXTROSE 5% 50 ML IV SCH ×3 (04:40→20:40)
[2020-08-18] MEDS: hydrALAZINE 25 MG TAB PO SCH ×3 (05:00→20:42)
[2020-08-18 05:48] LABS: BASOPHILS % (AUTO) 0.5 % (0.0-2.0); EOSINOPHILS % (AUTO) 0.1 % (0.0-4.0); HEMATOCRIT 41.7 % (36-52); LYMPHOCYTES # (AUTO) 1.2 K/uL (2.0-11.5); MEAN CORPUSCULAR HEMOGLOBIN 31 pg (27-31); MEAN CORPUSCULAR HGB CONC 34 g/dL (33-37); MEAN CORPUSCULAR VOLUME 92.8 fL (80-94); MONOCYTES # (AUTO) 0.8 K/uL (0.8-1.0); MONOCYTES % (AUTO) 7.7 % (1.7-9.3); NEUTROPHILS % (AUTO) 79.7 % (42.2-75.2); PLATELET COUNT (AUTO) 209 K/uL (140-450); WHITE BLOOD COUNT (AUTO) 10.1 K/uL (4.8-10.8)
[2020-08-18] MEDS ORDERED: hydrALAZINE 20 MG/ML VIAL IVP PRN (06:00)
[2020-08-18 06:10] LABS: ANION GAP 13.1 (8-16); CARBON DIOXIDE 26.2 mmol/L (21-32); CHLORIDE 108 mmol/L (98-107); CREATININE 0.8 mg/dL (0.6-1.3); GLUCOSE 77 mg/dL (74-106); POTASSIUM 3.3 mmol/L (3.5-5.1); SODIUM SERUM 144 mmol/L (136-145); UREA NITROGEN, BLOOD 18 mg/dL (7-18)
[2020-08-18 06:26] LABS: MAGNESIUM 1.8 mg/dL (1.8-2.4); PHOSPHORUS 2.2 mg/dL (2.5-4.9)
[2020-08-18 08:00] VITALS: BP 152/87
[2020-08-18] MEDS: RIVAROXABAN 10 MG TAB PO SCH (09:00)
[2020-08-18] MEDS: DOCUSATE SODIUM 100 MG GELCAP PO SCH ×2 (09:00→20:40)
[2020-08-18] MEDS: SENNA 8.6 MG TAB PO SCH (09:00)
[2020-08-18] MEDS: FAMOTIDINE 20 MG TAB PO SCH (09:00)
[2020-08-18] MEDS: lisinopriL 20 MG TAB PO SCH ×2 (09:00→20:42)
[2020-08-18] MEDS: amLODIPine 5 MG TAB PO SCH ×2 (09:00→20:42)
[2020-08-18] MEDS: ISOSORBIDE DINITRATE 10 MG TAB PO SCH ×3 (09:00→16:28)
[2020-08-18] MEDS: METOPROLOL SUCCINATE 50 MG TABER PO SCH ×2 (09:00→20:41)
[2020-08-18] MEDS: MULTIVITAMIN 1 TAB PO SCH (09:00)
[2020-08-18] MEDS: LACTOBACILLUS RHAMNOSUS GG 1 EACH CAP PO SCH (09:00)
[2020-08-18] MEDS: SERTRALINE 50 MG TAB PO SCH (09:00)
[2020-08-18 12:00] VITALS: BP 167/91
[2020-08-18 16:00] VITALS: BP 156/99
[2020-08-18 20:00] VITALS: BP 127/73
[2020-08-18] MEDS: ATORVASTATIN 20 MG TAB PO SCH (20:41)
[2020-08-19] VITALS: BP 133/76
[2020-08-19] MEDS: DEXT 5% / NACL 0.9% 500 ML IV SCH ×3 (01:00→18:03)
[2020-08-19 04:00] VITALS: BP_SYST 153; BP_DIAS 76; BP_DIAS 99
[2020-08-19] MEDS: PIPERACILLIN/TAZOBACTAM 3.375 GM in DEXTROSE 5% 50 ML IV SCH ×3 (04:23→21:07)
[2020-08-19] MEDS: hydrALAZINE 25 MG TAB PO SCH ×3 (04:24→21:08)
[2020-08-19 07:39] LABS: BASOPHILS % (AUTO) 0.4 % (0.0-2.0); EOSINOPHILS % (AUTO) 0.3 % (0.0-4.0); HEMATOCRIT 41.7 % (36-52); HEMOGLOBIN 14.1 g/dL (12.0-18.0); LYMPHOCYTES # (AUTO) 1.1 K/uL (2.0-11.5); LYMPHOCYTES % (AUTO) 11.5 % (20.5-51.1); MEAN CORPUSCULAR HEMOGLOBIN 31 pg (27-31); MEAN CORPUSCULAR HGB CONC 34 g/dL (33-37); MEAN CORPUSCULAR VOLUME 92.5 fL (80-94); MONOCYTES # (AUTO) 0.8 K/uL (0.8-1.0); MONOCYTES % (AUTO) 8.2 % (1.7-9.3); NEUTROPHILS # (AUTO) 7.5 K/uL (1.8-7.7); NEUTROPHILS % (AUTO) 79.6 % (42.2-75.2); PLATELET COUNT (AUTO) 193 K/uL (140-450); RED BLOOD CELL COUNT(AUTO) 4.51 MIL/uL (4.20-6.10); RED CELL DISTRIBUTION WIDTH 14.1 % (11.6-13.7); WHITE BLOOD COUNT (AUTO) 9.4 K/uL (4.8-10.8)
[2020-08-19 08:00] VITALS: BP 177/99
[2020-08-19 08:08] LABS: ANION GAP 10.5 (8-16); CARBON DIOXIDE 27.1 mmol/L (21-32); CHLORIDE 110 mmol/L (98-107); CREATININE 0.7 mg/dL (0.6-1.3); GLUCOSE 95 mg/dL (74-106); POTASSIUM 3.6 mmol/L (3.5-5.1); SODIUM SERUM 144 mmol/L (136-145); UREA NITROGEN, BLOOD 9 mg/dL (7-18)
[2020-08-19 08:09] LABS: MAGNESIUM 1.8 mg/dL (1.8-2.4); PHOSPHORUS 2.5 mg/dL (2.5-4.9)
[2020-08-19] MEDS: DOCUSATE SODIUM 100 MG GELCAP PO SCH ×2 (11:02→21:08)
[2020-08-19] MEDS: LACTOBACILLUS RHAMNOSUS GG 1 EACH CAP PO SCH (11:02)
[2020-08-19] MEDS: FAMOTIDINE 20 MG TAB PO SCH (11:02)
[2020-08-19] MEDS: ISOSORBIDE DINITRATE 10 MG TAB PO SCH ×3 (11:03→18:05)
[2020-08-19] MEDS: MULTIVITAMIN 1 TAB PO SCH (11:04)
[2020-08-19] MEDS: SENNA 8.6 MG TAB PO SCH (11:04)
[2020-08-19] MEDS: amLODIPine 5 MG TAB PO SCH ×2 (11:04→22:00)
[2020-08-19] MEDS: RIVAROXABAN 10 MG TAB PO SCH (11:06)
[2020-08-19] MEDS: SERTRALINE 50 MG TAB PO SCH (11:07)
[2020-08-19] MEDS: lisinopriL 20 MG TAB PO SCH ×2 (11:08→22:00)
[2020-08-19] MEDS: METOPROLOL SUCCINATE 50 MG TABER PO SCH ×2 (11:12→21:08)
[2020-08-19 12:00] VITALS: BP 115/77
[2020-08-19 16:00] VITALS: BP 146/71
[2020-08-19 20:00] VITALS: BP 126/68
[2020-08-19] MEDS: ATORVASTATIN 20 MG TAB PO SCH (21:08)
[2020-08-20] VITALS: BP 136/74
[2020-08-20] MEDS: DEXT 5% / NACL 0.9% 500 ML IV SCH ×2 (02:00→10:12)
[2020-08-20 04:00] VITALS: BP 154/79
[2020-08-20] MEDS: PIPERACILLIN/TAZOBACTAM 3.375 GM in DEXTROSE 5% 50 ML IV SCH ×2 (04:33→12:34)
[2020-08-20] MEDS: hydrALAZINE 25 MG TAB PO SCH ×2 (05:32→12:37)
[2020-08-20 06:40] LABS: BASOPHILS % (AUTO) 0.3 % (0.0-2.0); EOSINOPHILS # (AUTO) 0.1 K/uL (0-0.4); HEMATOCRIT 40.8 % (36-52); HEMOGLOBIN 13.6 g/dL (12.0-18.0); LYMPHOCYTES # (AUTO) 1.2 K/uL (2.0-11.5); MEAN CORPUSCULAR HEMOGLOBIN 31 pg (27-31); MEAN CORPUSCULAR HGB CONC 33 g/dL (33-37); MEAN CORPUSCULAR VOLUME 93.4 fL (80-94); MONOCYTES # (AUTO) 0.6 K/uL (0.8-1.0); MONOCYTES % (AUTO) 7.9 % (1.7-9.3); NEUTROPHILS # (AUTO) 5.8 K/uL (1.8-7.7); NEUTROPHILS % (AUTO) 74.8 % (42.2-75.2); PLATELET COUNT (AUTO) 215 K/uL (140-450); RED BLOOD CELL COUNT(AUTO) 4.37 MIL/uL (4.20-6.10); RED CELL DISTRIBUTION WIDTH 13.7 % (11.6-13.7); WHITE BLOOD COUNT (AUTO) 7.7 K/uL (4.8-10.8)
[2020-08-20 07:28] LABS: ANION GAP 13.7 (8-16); CARBON DIOXIDE 23.9 mmol/L (21-32); CHLORIDE 109 mmol/L (98-107); CREATININE 0.7 mg/dL (0.6-1.3); GLUCOSE 104 mg/dL (74-106); MAGNESIUM 1.8 mg/dL (1.8-2.4); PHOSPHORUS 2.5 mg/dL (2.5-4.9); POTASSIUM 3.6 mmol/L (3.5-5.1); SODIUM SERUM 143 mmol/L (136-145); UREA NITROGEN, BLOOD 5 mg/dL (7-18)
[2020-08-20 08:00] VITALS: BP 157/85
[2020-08-20] MEDS: SENNA 8.6 MG TAB PO SCH (09:59)
[2020-08-20] MEDS: lisinopriL 20 MG TAB PO SCH (09:59)
[2020-08-20] MEDS: LACTOBACILLUS RHAMNOSUS GG 1 EACH CAP PO SCH (09:59)
[2020-08-20] MEDS: MULTIVITAMIN 1 TAB PO SCH (10:00)
[2020-08-20] MEDS: FAMOTIDINE 20 MG TAB PO SCH (10:00)
[2020-08-20] MEDS: amLODIPine 5 MG TAB PO SCH (10:00)
[2020-08-20] MEDS: DOCUSATE SODIUM 100 MG GELCAP PO SCH (10:01)
[2020-08-20] MEDS: METOPROLOL SUCCINATE 50 MG TABER PO SCH (10:01)
[2020-08-20] MEDS: ISOSORBIDE DINITRATE 10 MG TAB PO SCH ×2 (10:01→12:37)
[2020-08-20] MEDS: SERTRALINE 50 MG TAB PO SCH (10:02)
[2020-08-20] MEDS: RIVAROXABAN 10 MG TAB PO SCH (10:03)
[2020-08-20 12:00] VITALS: BP 143/80
== END 2020-08-20 14:00 | DRG 871 ==
LOC: MED 06:05 → MTU 09:32
DX: A41.9 Sepsis, unspecified organism (principal); J18.9 Pneumonia, unspecified organism; G93.41 Metabolic encephalopathy; I50.30 Unspecified diastolic (congestive) heart failure; I69.354 Hemiplegia and hemiparesis following cerebral infarction affecting left non-dominant side; J98.11 Atelectasis; E44.0 Moderate protein-calorie malnutrition; E78.5 Hyperlipidemia, unspecified; I11.0 Hypertensive heart disease with heart failure; I48.91 Unspecified atrial fibrillation; K21.9 Gastro-esophageal reflux disease without esophagitis; Z20.822 Contact with and (suspected) exposure to COVID-19; F03.90 Unspecified dementia, unspecified severity, without behavioral disturbance, psychotic disturbance, mood disturbance, and anxiety; Z66 Do not resuscitate; F32.9 Major depressive disorder, single episode, unspecified; G47.00 Insomnia, unspecified; Z82.5 Family history of asthma and other chronic lower respiratory diseases; Z83.3 Family history of diabetes mellitus; Z82.3 Family history of stroke; Z82.49 Family history of ischemic heart disease and other diseases of the circulatory system; I25.10 Atherosclerotic heart disease of native coronary artery without angina pectoris; G89.29 Other chronic pain; G62.9 Polyneuropathy, unspecified; Z68.25 Body mass index [BMI] 25.0-25.9, adult; R31.9 Hematuria, unspecified; E86.0 Dehydration; M62.838 Other muscle spasm
CPT/HCPCS: 36415; 36600; 70450; 71045; 76770; 80048; 80053; 81001; 82140; 82150; 82550; 82728; 82803; 83036; 83605; 83615; 83690; 83735; 83880; 84100; 84134; 84436; 84443; 84484; 85025; 85379; 85384; 85610; 85730; 86140; 87040; 87081; 87086; 87420; 87804; 92526; 92610; 92700; 93005; 94640; 96374; 97110; 97112; 97530; 99291; C1758; J0360; J0696; J1100; J1644; J1956; J2060; J2543; J7030; J7042; J7060; U0003

== ENCOUNTER 2020-09-14 01:10 | Emergency (ER) | payer OTHER ==
[~2020-09-14] VITALS: Ht 180.3 cm; Wt 86.2 kg
[~2020-09-14 01:10] MED LIST changes: -COU1 PO; -GABA300C PO; -LACT10CA1 PO; +RIVA20TA PO
--- NOTE | 2020-09-14 01:16 | NUR ---
BIBA TAKEN TO BED #7
[2020-09-14 01:23] VITALS: BP 118/60
--- NOTE | 2020-09-14 01:34 | NUR ---
74 Y/O MALE BIBA FROM [facility] DUE TO UNWITNESSED FALL. PER EM, PT WAS ON THE EDGE ON THE BED, AND FOUND OUT LAYING ON THE FLOOR. PT IS A&OX2; VERY CONFUSED. PT HAS A RIGHT ARM ABRASION AND BRUISE, AND A LACERATION ON RIGHT INDEX. PT HAS ABRASION ON THE LEFT SIDE IF THE HEAD, RIGHT HAND SWELLING AND UNABLE TO FONDANT PUFF MAKER. VSS. PMH: HTN, ASPIRATION PNA, NEURPPATH, GERD, DEMENTIA, AFIB, DYSPLEGIA NKA
--- NOTE | 2020-09-14 01:44 | NUR ---
PT RETURNED FROM [facility]IA [facility]
--- NOTE | 2020-09-14 03:51 | NUR ---
Patient appears to be resting comfortably in bed. Vital Signs within normal limits. Respirations even and unlabored.
--- NOTE | 2020-09-14 07:05 | NUR ---
CALLED [facility]; SPOKE TO SHANIA REGARDING PT'S CONDITION AND UPDATED REGARDING PT GOING BACK TO FACILITY BUT STILL WAITING FOR TRANSPORT
--- NOTE | 2020-09-14 07:10 | NUR ---
Pt report received from Nina DEL [facility]. Transfer of care at this time.
--- NOTE | 2020-09-14 07:11 | NUR ---
GIVEN REPORT TO MARIA EUGENIA GALEANO FOR CONTINUITY OF CARE
--- NOTE | 2020-09-14 10:01 | NUR ---
[facility] ARRIVED TO [facility] PT.
--- NOTE | 2020-09-14 10:02 | NUR ---
Patient discharged with v/s stable. Written and verbal after care instructions given and explained. Patient verbalized understanding. [facility] with to half-way. All questions addressed prior to discharge. Advised to follow up with PMD.
[2020-09-14 10:03] VITALS: BP 117/65
== END 2020-09-14 10:02 ==
LOC: MED 01:10
DX: S09.90XA Unspecified injury of head, initial encounter (principal); F03.90 Unspecified dementia, unspecified severity, without behavioral disturbance, psychotic disturbance, mood disturbance, and anxiety; K21.9 Gastro-esophageal reflux disease without esophagitis; I11.9 Hypertensive heart disease without heart failure; Z86.73 Personal history of transient ischemic attack (TIA), and cerebral infarction without residual deficits; Z79.899 Other long term (current) drug therapy; W01.0XXA Fall on same level from slipping, tripping and stumbling without subsequent striking against object, initial encounter; Y93.89 Activity, other specified; Y92.89 Other specified places as the place of occurrence of the external cause; Y99.8 Other external cause status
CPT/HCPCS: 70450; 99284